=== PATIENT | male | born 1960 | race Asian ===

== ENCOUNTER 2018-12-22 11:48 | Inpatient (IN) | payer OTHER ==
[~2018-12-22 11:48] MED LIST: POTASSIUM CHLORIDE 20 MEQ/SW 100 ML IVPB
[2018-12-22 13:01] LABS: ADD MAN DIFF? NO
[2018-12-22 13:03] LABS: ABNORMAL IP MESSAGE 1; BASOPHIL # 0.1 10^3/ul (0.0-0.1); BASOPHILS % 0.2 % (0.0-2.0); EOSINOPHILS # 0.2 10^3/ul (0.0-0.5); EOSINOPHILS % 0.9 % (0.0-7.0); HEMATOCRIT 32.6 % (42.0-52.0); HEMOGLOBIN 10.3 g/dl (14.0-18.0); LYMPHOCYTES # 0.9 10^3/ul (0.8-2.9); LYMPHOCYTES % 4.3 % (15.0-51.0); MEAN CORPUSCULAR HEMOGLOBIN 26.8 pg (29.0-33.0); MEAN CORPUSCULAR HGB CONC 31.6 g/dl (32.0-37.0); MEAN CORPUSCULAR VOLUME 84.7 fl (82.0-101.0); MEAN PLATELET VOLUME 9.6 fl (7.4-10.4); MONOCYTE # 1.5 10^3/ul (0.3-0.9); MONOCYTES % 7.6 % (0.0-11.0); NEUTROPHIL # 17.5 10^3/ul (1.6-7.5); NEUTROPHILS % 85.9 % (39.0-77.0); PLATELET COUNT 266 10^3/UL (140-415); POSITIVE DIFF @See below; RED BLOOD COUNT 3.85 10^6/ul (4.70-6.10); RED CELL DISTRIBUTION WIDTH 14.7 % (11.5-14.5)
[2018-12-22 13:23] LABS: PARTIAL THROMBOPLASTIN TIME 34.3 Sec (23.0-35.0); PROTIME 14.3 Sec (11.9-14.9); PT RATIO 1.1
[2018-12-22 13:25] LABS: HOLD TRANSMISSIONS 1
[2018-12-22 13:26] LABS: ALANINE AMINOTRANSFERASE 68 IU/L (13-69); ALBUMIN 3.1 g/dl (3.3-4.9); ALBUMIN/GLOBULIN RATIO 0.81; ALKALINE PHOSPHATASE 268 IU/L (42-121); ANION GAP 6 (5-13); ASPARTATE AMINO TRANSFERASE 44 IU/L (15-46); BILIRUBIN,INDIRECT 0.7 mg/dl (0-1.1); BILIRUBIN,TOTAL 0.7 mg/dl (0.2-1.3); BLOOD UREA NITROGEN 15 mg/dl (7-20); CALCIUM 9.5 mg/dl (8.4-10.2); CARBON DIOXIDE 31 mmol/L (21-31); CHLORIDE 102 mmol/L (97-110); GLUCOSE 127 mg/dl (70-220); TOTAL PROTEIN 6.9 g/dl (6.1-8.1)
[2018-12-22 13:27] LABS: WHITE BLOOD COUNT 20.3 10^3/ul (4.8-10.8)
[2018-12-22 13:30] LABS: SODIUM 139 mmol/L (135-144)
[2018-12-22 13:31] LABS: CREATININE 1.47 mg/dl (0.61-1.24); Estimated GFR 49 mL/min (>60)
[2018-12-22] MEDS ORDERED: FENTAnyl 50 MCG/ML VIAL ×2 (14:14→14:45)
[2018-12-22] MEDS ORDERED: MIDAZOLAM 1 MG/ML 2 ML INJ (14:15)
[2018-12-22] MEDS ORDERED: morphine SULFATE/PF (10 MG/10 ML) INJ (14:16)
[2018-12-22] MEDS ORDERED: VANCOMYCIN 1 GM (PMX) 250 ML (14:38)
[2018-12-22] MEDS ORDERED: METOPROLOL 5 MG INJ ×3 (14:42→15:58)
[2018-12-22] MEDS ORDERED: hydrALAzine 20 MG INJ ×2 (14:45→15:07)
[2018-12-22] MEDS: POLYMYXIN B 500000 UNIT INJ (15:06)
[2018-12-22] MEDS: BACITRACIN 50000 UNITS INJ IRR (15:07)
[2018-12-22] MEDS ORDERED: LABETALOL HCL 20MG INJ (15:29)
[2018-12-22] MEDS ORDERED: nitroGLYCerin 50 MG INJ (15:30)
[2018-12-22] MEDS ORDERED: MEPERIDINE 100 MG INJ (15:49)
[2018-12-22] MEDS ORDERED: hydrALAzine 20 MG INJ IV (16:30)
[2018-12-22] MEDS ORDERED: LABETALOL HCL 20MG INJ IV (16:30)
[2018-12-22] MEDS ORDERED: FENTAnyl 50 MCG/ML VIAL IV (16:30)
[2018-12-22] MEDS ORDERED: HYDROmorphONE 1 MG/5 ML IV SYRINGE IV ×2 (16:30)
[2018-12-22] MEDS ORDERED: DIPHENHYDRAMINE 50 MG INJ IV (16:30)
[2018-12-22] MEDS ORDERED: NALOXONE (0.4 MG/ML) INJ IV (16:30)
[2018-12-22] MEDS ORDERED: NITROGLYCERIN 50 MG/D5W (PMX) 250 ML IV (16:30)
[2018-12-22] MEDS ORDERED: ONDANSETRON 4 MG INJ IV ×2 (16:30→17:00)
[2018-12-22] MEDS ORDERED: ACETAMINOPHEN 650 MG SUPP PR (17:00)
[2018-12-22] MEDS ORDERED: NACL 0.9% 3 ML SYG IV (17:00)
[2018-12-22] MEDS: SOD CHLORIDE 0.9% 1,000 ML IV (17:22)
[2018-12-22 17:27] LABS: HEMOGLOBIN A1C 5.8 % (0-5.9)
[2018-12-22] MEDS: POTASSIUM CHLORIDE 100 ML IVPB (17:29)
[2018-12-22 17:32] LABS: CHOLESTEROL 139 mg/dl (100-200)
[2018-12-22 17:32] LABS: CHOL/HDL RATIO 5.7 RATIO; HDL CHOLESTEROL 24 mg/dl (30-78); LDL CHOLESTEROL,CALCULATED 94 mg/dl; TRIGLYCERIDES 103 mg/dl (0-149)
[2018-12-22 17:33] LABS: MAGNESIUM 1.7 mg/dl (1.7-2.5)
[2018-12-22 17:40] LABS: LACTIC ACID 3.9 mmol/L (0.5-2.0)
[2018-12-22 17:48] LABS: C-REACTIVE PROTEIN 22.3 mg/dl (0.0-0.9)
[2018-12-22] MEDS ORDERED: VANCOMYCIN IV PER PHARMACY XX (18:30)
[2018-12-22 19:04] LABS: ERYTHROCYTE SEDIMENTATION RATE 121 mm/Hr (0-20)
[2018-12-22 19:31] LABS: PHOSPHORUS 1.8 mg/dl (2.5-4.9)
[2018-12-22 20:58] LABS: PARATHYROID HORMONE INTACT 287.4 pg/ml (7.5-53.5)
[2018-12-22] MEDS ORDERED: MEROPENEM 1 GM/50ML(PMX) 50 ML IVPB (21:00)
[2018-12-22] MEDS ORDERED: LEFLUNOMIDE 20 MG TAB PO (21:00)
[2018-12-22] MEDS: LABETALOL 100 MG TAB PO (21:00)
[2018-12-22] MEDS ORDERED: CALCITRIOL 0.25 MCG CAP PO (21:00)
[2018-12-22] MEDS: SOD PHOS MONO/DIBAS 250 MG TAB PO (21:10)
[2018-12-22] MEDS ORDERED: TACROLIMUS 1 MG CAP PO (22:00)
[2018-12-22] MEDS: DIPHENHYDRAMINE 50 MG INJ IV (22:07)
[2018-12-22] MEDS: TACROLIMUS 1 MG CAP PO (22:07)
[2018-12-22] MEDS: AZTREONAM 2 GM in SOD CHLORIDE 0.9% 100 ML IVPB (22:53)
[2018-12-23] MEDS: POTASSIUM CHLORIDE 100 ML IVPB (00:06)
[2018-12-23 05:59] LABS: ADD MAN DIFF? NO
[2018-12-23 06:13] LABS: WHITE BLOOD COUNT 12.3 10^3/ul (4.8-10.8)
[2018-12-23 06:13] LABS: BASOPHIL # 0.1 10^3/ul (0.0-0.1); BASOPHILS % 0.4 % (0.0-2.0); EOSINOPHILS # 0.2 10^3/ul (0.0-0.5); EOSINOPHILS % 1.5 % (0.0-7.0); HEMATOCRIT 26.2 % (42.0-52.0); HEMOGLOBIN 8.2 g/dl (14.0-18.0); LYMPHOCYTES # 0.9 10^3/ul (0.8-2.9); LYMPHOCYTES % 7.4 % (15.0-51.0); MEAN CORPUSCULAR HEMOGLOBIN 26.7 pg (29.0-33.0); MEAN CORPUSCULAR HGB CONC 31.3 g/dl (32.0-37.0); MEAN CORPUSCULAR VOLUME 85.3 fl (82.0-101.0); MEAN PLATELET VOLUME 10.4 fl (7.4-10.4); MONOCYTE # 0.9 10^3/ul (0.3-0.9); MONOCYTES % 7.3 % (0.0-11.0); NEUTROPHIL # 10.1 10^3/ul (1.6-7.5); NEUTROPHILS % 82.4 % (39.0-77.0); PLATELET COUNT 233 10^3/UL (140-415); RED BLOOD COUNT 3.07 10^6/ul (4.70-6.10); RED CELL DISTRIBUTION WIDTH 15.2 % (11.5-14.5)
[2018-12-23 06:23] LABS: INR 1.14; PROTIME 14.7 Sec (11.9-14.9); PT RATIO 1.1
[2018-12-23 06:24] LABS: PARTIAL THROMBOPLASTIN TIME 38.8 Sec (23.0-35.0)
[2018-12-23 06:31] LABS: LACTIC ACID 1.1 mmol/L (0.5-2.0)
[2018-12-23 06:44] LABS: ALANINE AMINOTRANSFERASE 64 IU/L (13-69); ALBUMIN 2.4 g/dl (3.3-4.9); ALBUMIN/GLOBULIN RATIO 0.77; ALKALINE PHOSPHATASE 174 IU/L (42-121); ANION GAP 3 (5-13); ASPARTATE AMINO TRANSFERASE 74 IU/L (15-46); BILIRUBIN,INDIRECT 0.4 mg/dl (0-1.1); BILIRUBIN,TOTAL 0.4 mg/dl (0.2-1.3); BLOOD UREA NITROGEN 17 mg/dl (7-20); CALCIUM 8.7 mg/dl (8.4-10.2); CARBON DIOXIDE 28 mmol/L (21-31); CHLORIDE 110 mmol/L (97-110); CREATININE 1.36 mg/dl (0.61-1.24); Estimated GFR 54 mL/min (>60); GLUCOSE 88 mg/dl (70-220); POTASSIUM 3.5 mmol/L (3.5-5.1); SODIUM 141 mmol/L (135-144); TOTAL PROTEIN 5.5 g/dl (6.1-8.1)
[2018-12-23 06:58] LABS: HEMOGLOBIN A1C 5.8 % (0-5.9)
[2018-12-23 06:59] LABS: MAGNESIUM 1.8 mg/dl (1.7-2.5)
[2018-12-23 06:59] LABS: PHOSPHORUS 2.2 mg/dl (2.5-4.9); PROCALCITONIN 10.82 ng/mL (0.00-0.10)
[2018-12-23] MEDS: SOD PHOS MONO/DIBAS 250 MG TAB PO ×2 (09:00→23:06)
[2018-12-23] MEDS ORDERED: TACROLIMUS 1 MG CAP PO (09:00)
[2018-12-23] MEDS ORDERED: CLOPIDOGREL 75 MG TAB PO (09:00)
[2018-12-23] MEDS ORDERED: SOD PHOS MONO/DIBAS 250 MG TAB PO (09:00)
[2018-12-23] MEDS ORDERED: NIFEdipine (XL) 30 MG TAB PO (09:00)
[2018-12-23] MEDS ORDERED: LEFLUNOMIDE 20 MG TAB PO ×2 (09:00)
[2018-12-23] MEDS ORDERED: CALCITRIOL 0.25 MCG CAP PO (09:00)
[2018-12-23] MEDS ORDERED: FOLIC ACID 1 MG TAB PO (09:00)
[2018-12-23] MEDS ORDERED: MULTIVIT/CA CARB/B CMPLX/FA TAB PO (09:00)
[2018-12-23] MEDS: AZTREONAM 2 GM in SOD CHLORIDE 0.9% 100 ML IVPB ×2 (09:00→22:56)
[2018-12-23] MEDS ORDERED: LABETALOL 100 MG TAB PO (09:00)
[2018-12-23 10:02] LABS: ADD UMIC NO; UR ASCORBIC ACID NEGATIVE (NEGATIVE); UR BILIRUBIN (Dip) NEGATIVE (NEGATIVE); UR BLOOD (Dip) NEGATIVE (NEGATIVE); UR CLARITY CLEAR (CLEAR); UR COLOR YELLOW (YELLOW); UR GLUCOSE (Dip) NEGATIVE (NEGATIVE); UR KETONES (Dip) TRACE mg/dL (NEGATIVE); UR LEUKOCYTE ESTERASE (Dip) NEGATIVE Leu/ul (NEGATIVE); UR NITRITE (Dip) NEGATIVE (NEGATIVE); UR SPECIFIC GRAVITY (Dip) 1.015 (1.003-1.030); UR TOTAL PROTEIN (Dip) NEGATIVE (NEGATIVE); UR UROBILINOGEN (Dip) NEGATIVE (NEGATIVE)
[2018-12-23] MEDS: LEFLUNOMIDE 20 MG TAB PO (12:41)
[2018-12-23] MEDS: LABETALOL 100 MG TAB PO ×2 (12:41→22:55)
[2018-12-23] MEDS: CALCITRIOL 0.25 MCG CAP PO (12:41)
[2018-12-23] MEDS: TACROLIMUS 1 MG CAP PO ×2 (12:42→22:55)
[2018-12-23] MEDS: FOLIC ACID 1 MG TAB PO (12:42)
[2018-12-23] MEDS: NIFEdipine (XL) 30 MG TAB PO (12:42)
[2018-12-23] MEDS: MULTIVIT/CA CARB/B CMPLX/FA TAB PO (12:42)
[2018-12-23] MEDS: POTASSIUM CHLORIDE (SR) 20 MEQ TAB PO (14:30)
[2018-12-23] MEDS: VANCOMYCIN 750 MG (PMX) 250 ML IVPB (14:31)
[2018-12-23 14:47] LABS: IRON 24 ug/dl (35-150)
[2018-12-23 14:56] LABS: % IRON SATURATION 15 % SAT (22-52); TOTAL IRON BINDING CAPACITY 156 ug/dl (241-421)
[2018-12-23 16:16] LABS: TACROLIMUS 10.3 mcg/L
[2018-12-24 06:11] LABS: ADD MAN DIFF? NO
[2018-12-24 06:16] LABS: WHITE BLOOD COUNT 15.4 10^3/ul (4.8-10.8)
[2018-12-24 06:16] LABS: BASOPHIL # 0.1 10^3/ul (0.0-0.1); BASOPHILS % 0.4 % (0.0-2.0); EOSINOPHILS # 0.3 10^3/ul (0.0-0.5); EOSINOPHILS % 1.7 % (0.0-7.0); HEMATOCRIT 28.8 % (42.0-52.0); HEMOGLOBIN 9.1 g/dl (14.0-18.0); LYMPHOCYTES # 0.8 10^3/ul (0.8-2.9); LYMPHOCYTES % 4.9 % (15.0-51.0); MEAN CORPUSCULAR HEMOGLOBIN 26.9 pg (29.0-33.0); MEAN CORPUSCULAR HGB CONC 31.6 g/dl (32.0-37.0); MEAN CORPUSCULAR VOLUME 85.2 fl (82.0-101.0); MONOCYTE # 1.1 10^3/ul (0.3-0.9); MONOCYTES % 7.2 % (0.0-11.0); NEUTROPHILS % 84.6 % (39.0-77.0); PLATELET COUNT 269 10^3/UL (140-415); RED BLOOD COUNT 3.38 10^6/ul (4.70-6.10); RED CELL DISTRIBUTION WIDTH 15.1 % (11.5-14.5)
[2018-12-24 06:39] LABS: LACTIC ACID 1.1 mmol/L (0.5-2.0)
[2018-12-24 06:44] LABS: ANION GAP 6 (5-13); BLOOD UREA NITROGEN 13 mg/dl (7-20); CARBON DIOXIDE 25 mmol/L (21-31); CHLORIDE 105 mmol/L (97-110); CREATININE 1.18 mg/dl (0.61-1.24); Estimated GFR > 60 mL/min (>60); GLUCOSE 100 mg/dl (70-220); POTASSIUM 3.9 mmol/L (3.5-5.1); SODIUM 136 mmol/L (135-144)
[2018-12-24 06:59] LABS: MAGNESIUM 1.4 mg/dl (1.7-2.5)
[2018-12-24 07:01] LABS: PROCALCITONIN 6.64 ng/mL (0.00-0.10)
[2018-12-24] MEDS: LEFLUNOMIDE 20 MG TAB PO (08:40)
[2018-12-24] MEDS: TACROLIMUS 1 MG CAP PO ×2 (08:40→21:50)
[2018-12-24] MEDS: LABETALOL 100 MG TAB PO ×2 (08:41→21:51)
[2018-12-24] MEDS: SOD PHOS MONO/DIBAS 250 MG TAB PO ×2 (08:42→21:51)
[2018-12-24] MEDS: MULTIVIT/CA CARB/B CMPLX/FA TAB PO (08:43)
[2018-12-24] MEDS: FOLIC ACID 1 MG TAB PO (08:43)
[2018-12-24] MEDS: CALCITRIOL 0.25 MCG CAP PO (08:43)
[2018-12-24] MEDS: NIFEdipine (XL) 30 MG TAB PO (08:44)
[2018-12-24] MEDS: AZTREONAM 2 GM in SOD CHLORIDE 0.9% 100 ML IVPB ×2 (08:44→21:50)
[2018-12-24] MEDS: MAGNESIUM SULFATE 3 GM in DEXTROSE 5% 100 ML IVPB (10:40)
[2018-12-24] MEDS: POTASSIUM PHOSPHATE 15 MM in SOD CHLORIDE 0.9% 250 ML IVPB (11:13)
[2018-12-24] MEDS: VANCOMYCIN 750 MG (PMX) 250 ML IVPB (14:22)
[2018-12-25 05:46] LABS: ADD MAN DIFF? NO
[2018-12-25 06:11] LABS: WHITE BLOOD COUNT 14.2 10^3/ul (4.8-10.8)
[2018-12-25 06:11] LABS: BASOPHIL # 0.1 10^3/ul (0.0-0.1); BASOPHILS % 0.4 % (0.0-2.0); EOSINOPHILS # 0.4 10^3/ul (0.0-0.5); EOSINOPHILS % 2.5 % (0.0-7.0); HEMATOCRIT 29.2 % (42.0-52.0); HEMOGLOBIN 9.2 g/dl (14.0-18.0); LYMPHOCYTES # 0.7 10^3/ul (0.8-2.9); LYMPHOCYTES % 5.1 % (15.0-51.0); MEAN CORPUSCULAR HEMOGLOBIN 26.9 pg (29.0-33.0); MEAN CORPUSCULAR HGB CONC 31.5 g/dl (32.0-37.0); MEAN CORPUSCULAR VOLUME 85.4 fl (82.0-101.0); MEAN PLATELET VOLUME 10.1 fl (7.4-10.4); MONOCYTES % 7.2 % (0.0-11.0); NEUTROPHIL # 11.9 10^3/ul (1.6-7.5); NEUTROPHILS % 83.7 % (39.0-77.0); PLATELET COUNT 273 10^3/UL (140-415); RED BLOOD COUNT 3.42 10^6/ul (4.70-6.10); RED CELL DISTRIBUTION WIDTH 15.3 % (11.5-14.5)
[2018-12-25 06:39] LABS: MAGNESIUM 1.8 mg/dl (1.7-2.5)
[2018-12-25 06:47] LABS: ANION GAP 4 (5-13); BLOOD UREA NITROGEN 13 mg/dl (7-20); CARBON DIOXIDE 24 mmol/L (21-31); CHLORIDE 109 mmol/L (97-110); CREATININE 1.08 mg/dl (0.61-1.24); Estimated GFR > 60 mL/min (>60); GLUCOSE 105 mg/dl (70-220); POTASSIUM 4.3 mmol/L (3.5-5.1); SODIUM 137 mmol/L (135-144)
[2018-12-25 06:48] LABS: PROCALCITONIN 3.56 ng/mL (0.00-0.10)
[2018-12-25 07:12] LABS: PHOSPHORUS 2.5 mg/dl (2.5-4.9)
[2018-12-25] MEDS: TACROLIMUS 1 MG CAP PO ×2 (08:42→20:50)
[2018-12-25] MEDS: MULTIVIT/CA CARB/B CMPLX/FA TAB PO (08:42)
[2018-12-25] MEDS: CALCITRIOL 0.25 MCG CAP PO (08:42)
[2018-12-25] MEDS: NIFEdipine (XL) 30 MG TAB PO (08:42)
[2018-12-25] MEDS: FOLIC ACID 1 MG TAB PO (08:43)
[2018-12-25] MEDS: LEFLUNOMIDE 20 MG TAB PO (08:43)
[2018-12-25] MEDS: LABETALOL 100 MG TAB PO ×2 (08:44→20:50)
[2018-12-25] MEDS: SOD PHOS MONO/DIBAS 250 MG TAB PO ×2 (08:45→20:49)
[2018-12-25] MEDS: AZTREONAM 2 GM in SOD CHLORIDE 0.9% 100 ML IVPB ×2 (09:43→20:49)
[2018-12-25] MEDS: VANCOMYCIN 750 MG (PMX) 250 ML IVPB (15:28)
[2018-12-25 15:37] LABS: VANCOMYCIN,TROUGH 5.5 ug/ml (10.0-20.0)
[2018-12-26] MEDS: VANCOMYCIN 750 MG (PMX) 250 ML IVPB ×2 (03:58→14:56)
[2018-12-26 05:56] LABS: ADD MAN DIFF? NO
[2018-12-26 06:08] LABS: WHITE BLOOD COUNT 14.4 10^3/ul (4.8-10.8)
[2018-12-26 06:08] LABS: BASOPHIL # 0.1 10^3/ul (0.0-0.1); BASOPHILS % 0.4 % (0.0-2.0); EOSINOPHILS # 0.4 10^3/ul (0.0-0.5); EOSINOPHILS % 2.9 % (0.0-7.0); HEMATOCRIT 31.9 % (42.0-52.0); HEMOGLOBIN 10.1 g/dl (14.0-18.0); LYMPHOCYTES # 0.8 10^3/ul (0.8-2.9); LYMPHOCYTES % 5.4 % (15.0-51.0); MEAN CORPUSCULAR HEMOGLOBIN 26.9 pg (29.0-33.0); MEAN CORPUSCULAR HGB CONC 31.7 g/dl (32.0-37.0); MEAN CORPUSCULAR VOLUME 84.8 fl (82.0-101.0); MEAN PLATELET VOLUME 10.3 fl (7.4-10.4); MONOCYTE # 1.2 10^3/ul (0.3-0.9); MONOCYTES % 8.3 % (0.0-11.0); NEUTROPHIL # 11.8 10^3/ul (1.6-7.5); PLATELET COUNT 253 10^3/UL (140-415); POSITIVE DIFF @See below; RED BLOOD COUNT 3.76 10^6/ul (4.70-6.10); RED CELL DISTRIBUTION WIDTH 15.7 % (11.5-14.5)
[2018-12-26 06:36] LABS: ANION GAP 3 (5-13); BLOOD UREA NITROGEN 13 mg/dl (7-20); CALCIUM 9.2 mg/dl (8.4-10.2); CARBON DIOXIDE 22 mmol/L (21-31); CHLORIDE 111 mmol/L (97-110); CREATININE 1.15 mg/dl (0.61-1.24); Estimated GFR > 60 mL/min (>60); GLUCOSE 105 mg/dl (70-220); POTASSIUM 4.6 mmol/L (3.5-5.1); SODIUM 136 mmol/L (135-144)
[2018-12-26 06:41] LABS: MAGNESIUM 1.4 mg/dl (1.7-2.5)
[2018-12-26 07:44] LABS: PROCALCITONIN 2.06 ng/mL (0.00-0.10)
[2018-12-26 07:51] LABS: PHOSPHORUS 2.2 mg/dl (2.5-4.9)
[2018-12-26] MEDS: FOLIC ACID 1 MG TAB PO (08:17)
[2018-12-26] MEDS: SOD PHOS MONO/DIBAS 250 MG TAB PO ×2 (08:17→20:42)
[2018-12-26] MEDS: TACROLIMUS 1 MG CAP PO ×2 (08:17→20:41)
[2018-12-26] MEDS: MULTIVIT/CA CARB/B CMPLX/FA TAB PO (08:17)
[2018-12-26] MEDS: CALCITRIOL 0.25 MCG CAP PO (08:17)
[2018-12-26] MEDS: LEFLUNOMIDE 20 MG TAB PO (08:17)
[2018-12-26] MEDS: NIFEdipine (XL) 30 MG TAB PO (08:18)
[2018-12-26] MEDS: LABETALOL 100 MG TAB PO ×2 (08:18→20:42)
[2018-12-26] MEDS: AZTREONAM 2 GM in SOD CHLORIDE 0.9% 100 ML IVPB ×2 (08:50→20:39)
[2018-12-26] MEDS: MAGNESIUM SULFATE 2 GM/50 ML 50 ML IVPB (11:50)
[2018-12-26] MEDS ORDERED: VANCOMYCIN IV PER PHARMACY XX (17:00)
[2018-12-26] MEDS: LEVOFLOXACIN 500MG/D5W (PMX) 100 ML IVPB (17:30)
[2018-12-26] MEDS: ACETAMINOPHEN 325 MG TAB PO (20:44)
[2018-12-26] MEDS ORDERED: AZTREONAM 1 GM/NS (PMX) 50 ML IVPB (21:00)
[2018-12-26] MEDS: metroNIDAZOLE 500 MG/NS (PMX) 100 ML IVPB (22:08)
[2018-12-27] MEDS: VANCOMYCIN 750 MG (PMX) 250 ML IVPB ×2 (03:03→15:40)
[2018-12-27 06:02] LABS: ADD MAN DIFF? NO
[2018-12-27 06:12] LABS: WHITE BLOOD COUNT 16.9 10^3/ul (4.8-10.8)
[2018-12-27 06:12] LABS: BASOPHIL # 0.1 10^3/ul (0.0-0.1); BASOPHILS % 0.3 % (0.0-2.0); EOSINOPHILS # 0.4 10^3/ul (0.0-0.5); EOSINOPHILS % 2.1 % (0.0-7.0); HEMOGLOBIN 8.7 g/dl (14.0-18.0); LYMPHOCYTES # 0.7 10^3/ul (0.8-2.9); LYMPHOCYTES % 4.1 % (15.0-51.0); MEAN CORPUSCULAR HEMOGLOBIN 27.2 pg (29.0-33.0); MEAN CORPUSCULAR HGB CONC 32.2 g/dl (32.0-37.0); MEAN CORPUSCULAR VOLUME 84.4 fl (82.0-101.0); MONOCYTE # 1.3 10^3/ul (0.3-0.9); MONOCYTES % 7.4 % (0.0-11.0); NEUTROPHIL # 14.4 10^3/ul (1.6-7.5); NEUTROPHILS % 85.2 % (39.0-77.0); PLATELET COUNT 244 10^3/UL (140-415); RED CELL DISTRIBUTION WIDTH 15.5 % (11.5-14.5)
[2018-12-27 06:19] LABS: ADD UMIC YES; UR ASCORBIC ACID NEGATIVE (NEGATIVE); UR BILIRUBIN (Dip) NEGATIVE (NEGATIVE); UR BLOOD (Dip) 1+ mg/dL (NEGATIVE); UR CLARITY CLEAR (CLEAR); UR COLOR YELLOW (YELLOW); UR GLUCOSE (Dip) NEGATIVE (NEGATIVE); UR KETONES (Dip) NEGATIVE (NEGATIVE); UR LEUKOCYTE ESTERASE (Dip) NEGATIVE Leu/ul (NEGATIVE); UR NITRITE (Dip) NEGATIVE (NEGATIVE); UR RBC 0 /HPF (0-5); UR SPECIFIC GRAVITY (Dip) 1.013 (1.003-1.030); UR TOTAL PROTEIN (Dip) NEGATIVE (NEGATIVE); UR UROBILINOGEN (Dip) NEGATIVE (NEGATIVE); UR WBC 1 /HPF (0-5)
[2018-12-27 06:34] LABS: ALANINE AMINOTRANSFERASE 84 IU/L (13-69); ALBUMIN 2.5 g/dl (3.3-4.9); ALBUMIN/GLOBULIN RATIO 0.78; ALKALINE PHOSPHATASE 226 IU/L (42-121); ANION GAP 5 (5-13); ASPARTATE AMINO TRANSFERASE 88 IU/L (15-46); BILIRUBIN,INDIRECT 0.6 mg/dl (0-1.1); BILIRUBIN,TOTAL 0.6 mg/dl (0.2-1.3); BLOOD UREA NITROGEN 15 mg/dl (7-20); CALCIUM 8.8 mg/dl (8.4-10.2); CARBON DIOXIDE 20 mmol/L (21-31); CHLORIDE 110 mmol/L (97-110); CREATININE 1.08 mg/dl (0.61-1.24); Estimated GFR > 60 mL/min (>60); GLUCOSE 109 mg/dl (70-220); MAGNESIUM 1.6 mg/dl (1.7-2.5); POTASSIUM 4.1 mmol/L (3.5-5.1); SODIUM 135 mmol/L (135-144); TOTAL PROTEIN 5.7 g/dl (6.1-8.1)
[2018-12-27 06:35] LABS: LACTIC ACID 0.8 mmol/L (0.5-2.0)
[2018-12-27] MEDS: metroNIDAZOLE 500 MG/NS (PMX) 100 ML IVPB ×3 (06:53→22:02)
[2018-12-27 07:10] LABS: PROCALCITONIN 1.64 ng/mL (0.00-0.10)
[2018-12-27] MEDS: AZTREONAM 2 GM in SOD CHLORIDE 0.9% 100 ML IVPB ×2 (09:04→20:47)
[2018-12-27] MEDS: SOD PHOS MONO/DIBAS 250 MG TAB PO ×2 (09:05→20:48)
[2018-12-27] MEDS: TACROLIMUS 1 MG CAP PO ×2 (09:06→20:48)
[2018-12-27] MEDS: LABETALOL 100 MG TAB PO ×2 (09:06→20:48)
[2018-12-27] MEDS: NIFEdipine (XL) 30 MG TAB PO (09:06)
[2018-12-27] MEDS: CALCITRIOL 0.25 MCG CAP PO (09:06)
[2018-12-27] MEDS: LEFLUNOMIDE 20 MG TAB PO (09:06)
[2018-12-27] MEDS: FOLIC ACID 1 MG TAB PO (09:06)
[2018-12-27] MEDS: MULTIVIT/CA CARB/B CMPLX/FA TAB PO (09:07)
[2018-12-27 14:29] LABS: VANCOMYCIN,TROUGH 13.7 ug/ml (10.0-20.0)
[2018-12-27] MEDS: LEVOFLOXACIN 500MG/D5W (PMX) 100 ML IVPB (17:13)
[2018-12-27] MEDS: MAGNESIUM SULFATE 2 GM/50 ML 50 ML IVPB (18:05)
[2018-12-27] MEDS: HYDROmorphONE 1 MG/ML SYG IV (19:23)
[2018-12-27 20:02] LABS: CREATININE,URINE RANDOM 70.99 mg/dl (20-370)
[2018-12-28] MEDS: HYDROmorphONE 1 MG/ML SYG IV ×2 (02:31→20:15)
[2018-12-28] MEDS: VANCOMYCIN 750 MG (PMX) 250 ML IVPB ×2 (02:44→15:51)
[2018-12-28] MEDS: metroNIDAZOLE 500 MG/NS (PMX) 100 ML IVPB ×3 (05:27→21:59)
[2018-12-28 06:43] LABS: ADD MAN DIFF? NO
[2018-12-28 06:48] LABS: WHITE BLOOD COUNT 17.3 10^3/ul (4.8-10.8)
[2018-12-28 06:48] LABS: BASOPHIL # 0.1 10^3/ul (0.0-0.1); BASOPHILS % 0.5 % (0.0-2.0); EOSINOPHILS # 0.4 10^3/ul (0.0-0.5); HEMATOCRIT 28.1 % (42.0-52.0); HEMOGLOBIN 8.7 g/dl (14.0-18.0); LYMPHOCYTES # 0.7 10^3/ul (0.8-2.9); LYMPHOCYTES % 4.3 % (15.0-51.0); MEAN CORPUSCULAR HEMOGLOBIN 26.8 pg (29.0-33.0); MEAN CORPUSCULAR VOLUME 86.5 fl (82.0-101.0); MONOCYTE # 1.3 10^3/ul (0.3-0.9); MONOCYTES % 7.4 % (0.0-11.0); NEUTROPHIL # 14.7 10^3/ul (1.6-7.5); NEUTROPHILS % 84.9 % (39.0-77.0); PLATELET COUNT 210 10^3/UL (140-415); RED BLOOD COUNT 3.25 10^6/ul (4.70-6.10); RED CELL DISTRIBUTION WIDTH 15.9 % (11.5-14.5)
[2018-12-28] MEDS ORDERED: BUPIVACAINE 0.75%/DEXT (SPINAL) 2 ML INJ (07:00)
[2018-12-28 07:15] LABS: ALANINE AMINOTRANSFERASE 67 IU/L (13-69); ALBUMIN 2.4 g/dl (3.3-4.9); ALBUMIN/GLOBULIN RATIO 0.72; ALKALINE PHOSPHATASE 191 IU/L (42-121); ANION GAP 4 (5-13); ASPARTATE AMINO TRANSFERASE 55 IU/L (15-46); BILIRUBIN,INDIRECT 0.5 mg/dl (0-1.1); BILIRUBIN,TOTAL 0.5 mg/dl (0.2-1.3); BLOOD UREA NITROGEN 14 mg/dl (7-20); CALCIUM 8.7 mg/dl (8.4-10.2); CARBON DIOXIDE 21 mmol/L (21-31); CHLORIDE 112 mmol/L (97-110); CREATININE 1.07 mg/dl (0.61-1.24); Estimated GFR > 60 mL/min (>60); GLUCOSE 97 mg/dl (70-220); MAGNESIUM 1.8 mg/dl (1.7-2.5); PHOSPHORUS 2.9 mg/dl (2.5-4.9); POTASSIUM 3.9 mmol/L (3.5-5.1); SODIUM 137 mmol/L (135-144); TOTAL PROTEIN 5.7 g/dl (6.1-8.1)
[2018-12-28] MEDS: AZTREONAM 2 GM in SOD CHLORIDE 0.9% 100 ML IVPB ×2 (08:37→20:45)
[2018-12-28] MEDS: CALCITRIOL 0.25 MCG CAP PO (08:38)
[2018-12-28] MEDS: LEFLUNOMIDE 20 MG TAB PO (08:38)
[2018-12-28] MEDS: FOLIC ACID 1 MG TAB PO (08:39)
[2018-12-28] MEDS: SOD PHOS MONO/DIBAS 250 MG TAB PO ×2 (08:39→22:00)
[2018-12-28] MEDS: MULTIVIT/CA CARB/B CMPLX/FA TAB PO (08:39)
[2018-12-28] MEDS: LABETALOL 100 MG TAB PO ×2 (08:40→20:53)
[2018-12-28] MEDS: TACROLIMUS 1 MG CAP PO ×2 (08:40→20:52)
[2018-12-28] MEDS: ENOXAPARIN 40 MG/0.4 ML SYG SC (08:41)
[2018-12-28] MEDS: NIFEdipine (XL) 30 MG TAB PO (08:43)
[2018-12-28] MEDS: MAGNESIUM OXIDE 400 MG TAB PO (10:41)
[2018-12-28] MEDS ORDERED: MIDAZOLAM 1 MG/ML 2 ML INJ (12:49)
[2018-12-28] MEDS ORDERED: FENTAnyl 50 MCG/ML VIAL (12:50)
[2018-12-28] MEDS ORDERED: morphine SULFATE/PF (10 MG/10 ML) INJ (12:51)
[2018-12-28] MEDS ORDERED: VANCOMYCIN 1 GM (PMX) 250 ML (13:32)
[2018-12-28] MEDS ORDERED: PHENYLephrine 10 MG INJ (13:57)
[2018-12-28] MEDS ORDERED: LIDOCAINE 2% (SDV) 5 ML INJ (13:58)
[2018-12-28] MEDS ORDERED: PROPOFOL 20 ML (13:58)
[2018-12-28] MEDS: POLYMYXIN B 500000 UNIT INJ IRR (14:21)
[2018-12-28] MEDS: BACITRACIN 50000 UNITS INJ IRR (14:22)
[2018-12-28] MEDS ORDERED: HYDROmorphONE 1 MG/5 ML IV SYRINGE IV ×2 (14:30)
[2018-12-28] MEDS ORDERED: DIPHENHYDRAMINE 50 MG INJ IV (14:30)
[2018-12-28] MEDS ORDERED: FENTAnyl 50 MCG/ML VIAL IV (14:30)
[2018-12-28] MEDS ORDERED: ONDANSETRON 4 MG INJ IV (14:30)
[2018-12-28] MEDS ORDERED: METOCLOPRAMIDE 10 MG INJ IV (14:30)
[2018-12-28] MEDS: LEVOFLOXACIN 500MG/D5W (PMX) 100 ML IVPB (16:59)
[2018-12-29] MEDS: VANCOMYCIN 750 MG (PMX) 250 ML IVPB ×2 (02:22→16:30)
[2018-12-29] MEDS: metroNIDAZOLE 500 MG/NS (PMX) 100 ML IVPB ×3 (05:43→22:06)
[2018-12-29 06:22] LABS: ADD MAN DIFF? NO
[2018-12-29 06:26] LABS: WHITE BLOOD COUNT 15.5 10^3/ul (4.8-10.8)
[2018-12-29 06:26] LABS: BASOPHIL # 0.1 10^3/ul (0.0-0.1); BASOPHILS % 0.4 % (0.0-2.0); EOSINOPHILS # 0.5 10^3/ul (0.0-0.5); EOSINOPHILS % 3.3 % (0.0-7.0); HEMATOCRIT 25.7 % (42.0-52.0); HEMOGLOBIN 7.9 g/dl (14.0-18.0); LYMPHOCYTES # 0.7 10^3/ul (0.8-2.9); LYMPHOCYTES % 4.3 % (15.0-51.0); MEAN CORPUSCULAR HEMOGLOBIN 26.6 pg (29.0-33.0); MEAN CORPUSCULAR HGB CONC 30.7 g/dl (32.0-37.0); MEAN CORPUSCULAR VOLUME 86.5 fl (82.0-101.0); MEAN PLATELET VOLUME 10.3 fl (7.4-10.4); MONOCYTE # 1.2 10^3/ul (0.3-0.9); MONOCYTES % 7.5 % (0.0-11.0); NEUTROPHILS % 83.8 % (39.0-77.0); PLATELET COUNT 227 10^3/UL (140-415); RED BLOOD COUNT 2.97 10^6/ul (4.70-6.10); RED CELL DISTRIBUTION WIDTH 15.9 % (11.5-14.5)
[2018-12-29 06:46] LABS: ANION GAP 7 (5-13); BLOOD UREA NITROGEN 17 mg/dl (7-20); CALCIUM 9.1 mg/dl (8.4-10.2); CARBON DIOXIDE 19 mmol/L (21-31); CHLORIDE 114 mmol/L (97-110); CREATININE 1.24 mg/dl (0.61-1.24); Estimated GFR 60 mL/min (>60); GLUCOSE 102 mg/dl (70-220); POTASSIUM 3.7 mmol/L (3.5-5.1); SODIUM 140 mmol/L (135-144)
[2018-12-29 07:38] LABS: PROCALCITONIN 1.52 ng/mL (0.00-0.10)
[2018-12-29] MEDS: NIFEdipine (XL) 30 MG TAB PO (09:00)
[2018-12-29] MEDS: DILTIAZEM 25 MG INJ IV ×2 (09:24→11:03)
[2018-12-29] MEDS: MULTIVIT/CA CARB/B CMPLX/FA TAB PO (09:30)
[2018-12-29] MEDS: CALCITRIOL 0.25 MCG CAP PO (09:30)
[2018-12-29] MEDS: TACROLIMUS 1 MG CAP PO ×2 (09:32→20:45)
[2018-12-29] MEDS: LABETALOL 100 MG TAB PO (09:32)
[2018-12-29] MEDS: FOLIC ACID 1 MG TAB PO (09:32)
[2018-12-29] MEDS: ENOXAPARIN 40 MG/0.4 ML SYG SC (09:42)
[2018-12-29] MEDS: MAGNESIUM OXIDE 400 MG TAB PO (09:56)
[2018-12-29] MEDS: DILTIAZEM-D5W 125MG/125ML DRIP 125 ML IV (09:57)
[2018-12-29] MEDS: ADENOSINE 6 MG INJ IV ×2 (10:12→10:25)
[2018-12-29] MEDS ORDERED: AMIODARONE 900 MG in DEXTROSE 5% 482 ML IV ×2 (11:00→11:30)
[2018-12-29] MEDS: AMIODARONE 150MG/D5W BOLUS 100 ML IV (11:40)
[2018-12-29] MEDS: AZTREONAM 2 GM in SOD CHLORIDE 0.9% 100 ML IVPB ×2 (12:34→20:44)
[2018-12-29] MEDS: LEFLUNOMIDE 20 MG TAB PO (14:42)
[2018-12-29] MEDS: DILTIAZEM 60 MG TAB PO ×3 (14:43→20:45)
[2018-12-29] MEDS: MAGNESIUM SULFATE 2 GM/50 ML 50 ML IVPB (14:47)
[2018-12-29] MEDS: SOD PHOS MONO/DIBAS 250 MG TAB PO ×2 (16:30→20:45)
[2018-12-29] MEDS: LEVOFLOXACIN 500MG/D5W (PMX) 100 ML IVPB (18:25)
[2018-12-30 02:56] LABS: VANCOMYCIN,TROUGH 17.5 ug/ml (10.0-20.0)
[2018-12-30] MEDS: VANCOMYCIN 750 MG (PMX) 250 ML IVPB ×2 (03:13→15:22)
[2018-12-30] MEDS: metroNIDAZOLE 500 MG/NS (PMX) 100 ML IVPB ×3 (06:05→20:47)
[2018-12-30 06:13] LABS: ADD MAN DIFF? NO
[2018-12-30 06:16] LABS: BASOPHIL # 0.1 10^3/ul (0.0-0.1); BASOPHILS % 0.4 % (0.0-2.0); EOSINOPHILS # 0.6 10^3/ul (0.0-0.5); HEMATOCRIT 26.9 % (42.0-52.0); HEMOGLOBIN 8.4 g/dl (14.0-18.0); LYMPHOCYTES # 0.7 10^3/ul (0.8-2.9); LYMPHOCYTES % 5.1 % (15.0-51.0); MEAN CORPUSCULAR HEMOGLOBIN 26.5 pg (29.0-33.0); MEAN CORPUSCULAR HGB CONC 31.2 g/dl (32.0-37.0); MEAN CORPUSCULAR VOLUME 84.9 fl (82.0-101.0); MEAN PLATELET VOLUME 9.7 fl (7.4-10.4); MONOCYTES % 7.1 % (0.0-11.0); NEUTROPHIL # 11.5 10^3/ul (1.6-7.5); NEUTROPHILS % 82.4 % (39.0-77.0); PLATELET COUNT 262 10^3/UL (140-415); RED BLOOD COUNT 3.17 10^6/ul (4.70-6.10); RED CELL DISTRIBUTION WIDTH 15.9 % (11.5-14.5)
[2018-12-30 06:46] LABS: ALANINE AMINOTRANSFERASE 53 IU/L (13-69); ALBUMIN 2.4 g/dl (3.3-4.9); ALKALINE PHOSPHATASE 145 IU/L (42-121); ANION GAP 8 (5-13); ASPARTATE AMINO TRANSFERASE 53 IU/L (15-46); BILIRUBIN,INDIRECT 0.4 mg/dl (0-1.1); BILIRUBIN,TOTAL 0.4 mg/dl (0.2-1.3); BLOOD UREA NITROGEN 13 mg/dl (7-20); CALCIUM 8.8 mg/dl (8.4-10.2); CARBON DIOXIDE 20 mmol/L (21-31); CHLORIDE 115 mmol/L (97-110); CREATININE 0.91 mg/dl (0.61-1.24); Estimated GFR > 60 mL/min (>60); GLUCOSE 112 mg/dl (70-220); MAGNESIUM 1.8 mg/dl (1.7-2.5); POTASSIUM 3.4 mmol/L (3.5-5.1); SODIUM 143 mmol/L (135-144); TOTAL PROTEIN 5.8 g/dl (6.1-8.1)
[2018-12-30] MEDS: TACROLIMUS 1 MG CAP PO ×2 (08:47→20:37)
[2018-12-30] MEDS: MAGNESIUM OXIDE 400 MG TAB PO (08:47)
[2018-12-30] MEDS: LEFLUNOMIDE 20 MG TAB PO (08:47)
[2018-12-30] MEDS: CALCITRIOL 0.25 MCG CAP PO (08:47)
[2018-12-30] MEDS: MULTIVIT/CA CARB/B CMPLX/FA TAB PO (08:47)
[2018-12-30] MEDS: FOLIC ACID 1 MG TAB PO (08:48)
[2018-12-30] MEDS: DILTIAZEM 60 MG TAB PO ×4 (08:48→20:36)
[2018-12-30] MEDS: AZTREONAM 2 GM in SOD CHLORIDE 0.9% 100 ML IVPB ×2 (08:52→20:38)
[2018-12-30] MEDS: SOD PHOS MONO/DIBAS 250 MG TAB PO ×2 (09:00→20:35)
[2018-12-30] MEDS: ENOXAPARIN 40 MG/0.4 ML SYG SC (09:02)
[2018-12-30] MEDS: LEVOFLOXACIN 500MG/D5W (PMX) 100 ML IVPB (17:46)
[2018-12-30] MEDS: AMIODARONE 200 MG TAB PO (20:37)
[2018-12-31] MEDS: metroNIDAZOLE 500 MG/NS (PMX) 100 ML IVPB ×3 (05:58→21:25)
[2018-12-31 06:24] LABS: ADD MAN DIFF? NO
[2018-12-31 06:30] LABS: BASOPHIL # 0.1 10^3/ul (0.0-0.1); BASOPHILS % 0.6 % (0.0-2.0); EOSINOPHILS # 0.6 10^3/ul (0.0-0.5); EOSINOPHILS % 5.5 % (0.0-7.0); HEMATOCRIT 27.3 % (42.0-52.0); HEMOGLOBIN 8.7 g/dl (14.0-18.0); LYMPHOCYTES # 0.7 10^3/ul (0.8-2.9); LYMPHOCYTES % 6.1 % (15.0-51.0); MEAN CORPUSCULAR HEMOGLOBIN 26.9 pg (29.0-33.0); MEAN CORPUSCULAR HGB CONC 31.9 g/dl (32.0-37.0); MEAN CORPUSCULAR VOLUME 84.3 fl (82.0-101.0); MEAN PLATELET VOLUME 10.2 fl (7.4-10.4); MONOCYTES % 8.8 % (0.0-11.0); NEUTROPHIL # 8.8 10^3/ul (1.6-7.5); NEUTROPHILS % 77.9 % (39.0-77.0); PLATELET COUNT 282 10^3/UL (140-415); RED BLOOD COUNT 3.24 10^6/ul (4.70-6.10); RED CELL DISTRIBUTION WIDTH 15.9 % (11.5-14.5)
[2018-12-31 06:30] LABS: WHITE BLOOD COUNT 11.3 10^3/ul (4.8-10.8)
[2018-12-31 06:59] LABS: ANION GAP 5 (5-13); BLOOD UREA NITROGEN 11 mg/dl (7-20); CALCIUM 8.8 mg/dl (8.4-10.2); CARBON DIOXIDE 24 mmol/L (21-31); CHLORIDE 113 mmol/L (97-110); CREATININE 0.89 mg/dl (0.61-1.24); Estimated GFR > 60 mL/min (>60); GLUCOSE 104 mg/dl (70-220); SODIUM 142 mmol/L (135-144)
[2018-12-31] MEDS: DILTIAZEM 60 MG TAB PO ×4 (12:16→21:20)
[2018-12-31] MEDS: AMIODARONE 200 MG TAB PO ×2 (12:17→21:19)
[2018-12-31] MEDS: MULTIVIT/CA CARB/B CMPLX/FA TAB PO (12:17)
[2018-12-31] MEDS: FOLIC ACID 1 MG TAB PO (12:17)
[2018-12-31] MEDS: LEFLUNOMIDE 20 MG TAB PO (12:17)
[2018-12-31] MEDS: CALCITRIOL 0.25 MCG CAP PO (12:18)
[2018-12-31] MEDS: POTASSIUM CHLORIDE (SR) 10 MEQ TAB PO ×2 (12:18→21:20)
[2018-12-31] MEDS: TACROLIMUS 1 MG CAP PO ×2 (12:18→21:19)
[2018-12-31] MEDS: MAGNESIUM OXIDE 400 MG TAB PO (12:18)
[2018-12-31] MEDS: ENOXAPARIN 40 MG/0.4 ML SYG SC (12:20)
[2018-12-31] MEDS: AZTREONAM 2 GM in SOD CHLORIDE 0.9% 100 ML IVPB ×2 (13:39→21:18)
[2018-12-31] MEDS: LIDOCAINE 1% (MPF) 5 ML VIAL SC (13:40)
[2018-12-31] MEDS: SOD PHOS MONO/DIBAS 250 MG TAB PO ×2 (16:53→23:37)
[2018-12-31] MEDS: LEVOFLOXACIN 500MG/D5W (PMX) 100 ML IVPB (18:07)
[2019-01-01] MEDS: metroNIDAZOLE 500 MG/NS (PMX) 100 ML IVPB ×3 (05:44→22:48)
[2019-01-01 06:07] LABS: ADD MAN DIFF? NO
[2019-01-01 06:33] LABS: WHITE BLOOD COUNT 11.2 10^3/ul (4.8-10.8)
[2019-01-01 06:33] LABS: BASOPHIL # 0.1 10^3/ul (0.0-0.1); BASOPHILS % 0.7 % (0.0-2.0); EOSINOPHILS # 0.7 10^3/ul (0.0-0.5); EOSINOPHILS % 6.6 % (0.0-7.0); HEMATOCRIT 29.9 % (42.0-52.0); HEMOGLOBIN 9.3 g/dl (14.0-18.0); LYMPHOCYTES # 0.9 10^3/ul (0.8-2.9); LYMPHOCYTES % 8.1 % (15.0-51.0); MEAN CORPUSCULAR HEMOGLOBIN 26.3 pg (29.0-33.0); MEAN CORPUSCULAR HGB CONC 31.1 g/dl (32.0-37.0); MEAN CORPUSCULAR VOLUME 84.7 fl (82.0-101.0); MEAN PLATELET VOLUME 10.2 fl (7.4-10.4); MONOCYTES % 9.1 % (0.0-11.0); NEUTROPHIL # 8.3 10^3/ul (1.6-7.5); NEUTROPHILS % 73.8 % (39.0-77.0); PLATELET COUNT 292 10^3/UL (140-415); RED BLOOD COUNT 3.53 10^6/ul (4.70-6.10); RED CELL DISTRIBUTION WIDTH 16.3 % (11.5-14.5)
[2019-01-01 06:51] LABS: ANION GAP 5 (5-13); BLOOD UREA NITROGEN 12 mg/dl (7-20); CALCIUM 8.8 mg/dl (8.4-10.2); CARBON DIOXIDE 24 mmol/L (21-31); CHLORIDE 113 mmol/L (97-110); CREATININE 0.93 mg/dl (0.61-1.24); Estimated GFR > 60 mL/min (>60); GLUCOSE 106 mg/dl (70-220); POTASSIUM 3.2 mmol/L (3.5-5.1); SODIUM 142 mmol/L (135-144)
[2019-01-01] MEDS: CALCITRIOL 0.25 MCG CAP PO (08:31)
[2019-01-01] MEDS: MAGNESIUM OXIDE 400 MG TAB PO (08:32)
[2019-01-01] MEDS: FOLIC ACID 1 MG TAB PO (08:32)
[2019-01-01] MEDS: LEFLUNOMIDE 20 MG TAB PO (08:32)
[2019-01-01] MEDS: TACROLIMUS 1 MG CAP PO ×2 (08:33→21:42)
[2019-01-01] MEDS: ENOXAPARIN 40 MG/0.4 ML SYG SC (08:36)
[2019-01-01] MEDS: POTASSIUM CHLORIDE 20 MEQ POWDER FOR ORAL SOLN PO (08:43)
[2019-01-01] MEDS: AMIODARONE 200 MG TAB PO ×2 (08:44→21:44)
[2019-01-01] MEDS: POTASSIUM CHLORIDE (SR) 10 MEQ TAB PO ×2 (08:45→21:42)
[2019-01-01] MEDS: DILTIAZEM (CD) 180 MG CAP PO (08:45)
[2019-01-01] MEDS: AZTREONAM 2 GM in SOD CHLORIDE 0.9% 100 ML IVPB ×2 (08:46→21:49)
[2019-01-01] MEDS: MULTIVIT/CA CARB/B CMPLX/FA TAB PO (08:54)
[2019-01-01] MEDS: SOD PHOS MONO/DIBAS 250 MG TAB PO ×2 (12:58→21:42)
[2019-01-01] MEDS: HYDROmorphONE 1 MG/ML SYG IV (13:54)
[2019-01-01] MEDS ORDERED: CALCIUM CARBONATE 500 MG CHEW TAB PO (15:30)
[2019-01-01] MEDS: LEVOFLOXACIN 500MG/D5W (PMX) 100 ML IVPB (17:41)
[2019-01-01] MEDS: FAMOTIDINE 20 MG TAB PO (21:42)
[2019-01-02 05:50] LABS: ADD MAN DIFF? NO
[2019-01-02 05:53] LABS: WHITE BLOOD COUNT 11.3 10^3/ul (4.8-10.8)
[2019-01-02 05:53] LABS: BASOPHIL # 0.1 10^3/ul (0.0-0.1); BASOPHILS % 0.9 % (0.0-2.0); EOSINOPHILS # 0.7 10^3/ul (0.0-0.5); EOSINOPHILS % 6.3 % (0.0-7.0); HEMATOCRIT 28.5 % (42.0-52.0); LYMPHOCYTES # 0.9 10^3/ul (0.8-2.9); LYMPHOCYTES % 8.3 % (15.0-51.0); MEAN CORPUSCULAR HEMOGLOBIN 27.1 pg (29.0-33.0); MEAN CORPUSCULAR HGB CONC 31.6 g/dl (32.0-37.0); MEAN CORPUSCULAR VOLUME 85.8 fl (82.0-101.0); MEAN PLATELET VOLUME 9.4 fl (7.4-10.4); MONOCYTE # 1.2 10^3/ul (0.3-0.9); MONOCYTES % 10.6 % (0.0-11.0); NEUTROPHILS % 71.1 % (39.0-77.0); PLATELET COUNT 287 10^3/UL (140-415); RED BLOOD COUNT 3.32 10^6/ul (4.70-6.10); RED CELL DISTRIBUTION WIDTH 16.8 % (11.5-14.5)
[2019-01-02 06:07] LABS: ALANINE AMINOTRANSFERASE 55 IU/L (13-69); ALBUMIN 2.5 g/dl (3.3-4.9); ALKALINE PHOSPHATASE 128 IU/L (42-121); ANION GAP 4 (5-13); ASPARTATE AMINO TRANSFERASE 112 IU/L (15-46); BILIRUBIN,INDIRECT 0.3 mg/dl (0-1.1); BILIRUBIN,TOTAL 0.3 mg/dl (0.2-1.3); BLOOD UREA NITROGEN 13 mg/dl (7-20); CALCIUM 8.8 mg/dl (8.4-10.2); CARBON DIOXIDE 23 mmol/L (21-31); CHLORIDE 114 mmol/L (97-110); Estimated GFR > 60 mL/min (>60); GLUCOSE 98 mg/dl (70-220); POTASSIUM 3.8 mmol/L (3.5-5.1); SODIUM 141 mmol/L (135-144); TOTAL PROTEIN 5.6 g/dl (6.1-8.1)
[2019-01-02 06:18] LABS: MAGNESIUM 1.2 mg/dl (1.7-2.5)
[2019-01-02 06:18] LABS: PHOSPHORUS 2.5 mg/dl (2.5-4.9)
[2019-01-02] MEDS: metroNIDAZOLE 500 MG/NS (PMX) 100 ML IVPB ×2 (06:56→14:03)
[2019-01-02] MEDS: CALCITRIOL 0.25 MCG CAP PO (09:36)
[2019-01-02] MEDS: AZTREONAM 2 GM in SOD CHLORIDE 0.9% 100 ML IVPB ×2 (09:36→20:29)
[2019-01-02] MEDS: POTASSIUM CHLORIDE (SR) 10 MEQ TAB PO ×2 (09:37→20:30)
[2019-01-02] MEDS: DILTIAZEM (CD) 180 MG CAP PO (09:37)
[2019-01-02] MEDS: MULTIVIT/CA CARB/B CMPLX/FA TAB PO (09:37)
[2019-01-02] MEDS: MAGNESIUM OXIDE 400 MG TAB PO ×2 (09:37→20:30)
[2019-01-02] MEDS: TACROLIMUS 1 MG CAP PO ×2 (09:38→20:30)
[2019-01-02] MEDS: AMIODARONE 200 MG TAB PO ×2 (09:38→20:30)
[2019-01-02] MEDS: FOLIC ACID 1 MG TAB PO (09:38)
[2019-01-02] MEDS: FAMOTIDINE 20 MG TAB PO ×2 (09:38→20:30)
[2019-01-02] MEDS: LEFLUNOMIDE 20 MG TAB PO (09:39)
[2019-01-02] MEDS: SOD PHOS MONO/DIBAS 250 MG TAB PO ×2 (09:39→20:29)
[2019-01-02] MEDS: ENOXAPARIN 40 MG/0.4 ML SYG SC (09:51)
[2019-01-02] MEDS ORDERED: MAGNESIUM SULFATE 2 GM/50 ML 50 ML IVPB (13:30)
[2019-01-02] MEDS: MAGNESIUM SULFATE 4 GM/100 ML 100 ML IVPB (14:12)
[2019-01-02] MEDS: LEVOFLOXACIN 500MG/D5W (PMX) 100 ML IVPB (17:22)
[2019-01-02] MEDS: metroNIDAZOLE 500 MG TAB PO (23:12)
[2019-01-03] MEDS: LEVOFLOXACIN 500 MG TAB PO (06:13)
[2019-01-03] MEDS: metroNIDAZOLE 500 MG TAB PO ×3 (06:13→21:49)
[2019-01-03 06:22] LABS: ADD MAN DIFF? NO
[2019-01-03 06:35] LABS: BASOPHIL # 0.1 10^3/ul (0.0-0.1); BASOPHILS % 1.4 % (0.0-2.0); EOSINOPHILS # 0.7 10^3/ul (0.0-0.5); EOSINOPHILS % 6.8 % (0.0-7.0); HEMOGLOBIN 9.7 g/dl (14.0-18.0); LYMPHOCYTES # 0.9 10^3/ul (0.8-2.9); LYMPHOCYTES % 9.1 % (15.0-51.0); MEAN CORPUSCULAR HEMOGLOBIN 27.1 pg (29.0-33.0); MEAN CORPUSCULAR HGB CONC 31.3 g/dl (32.0-37.0); MEAN CORPUSCULAR VOLUME 86.6 fl (82.0-101.0); MONOCYTE # 1.1 10^3/ul (0.3-0.9); MONOCYTES % 10.9 % (0.0-11.0); NEUTROPHILS % 68.3 % (39.0-77.0); PLATELET COUNT 293 10^3/UL (140-415); RED BLOOD COUNT 3.58 10^6/ul (4.70-6.10); RED CELL DISTRIBUTION WIDTH 17.7 % (11.5-14.5)
[2019-01-03 06:35] LABS: WHITE BLOOD COUNT 10.2 10^3/ul (4.8-10.8)
[2019-01-03] MEDS: SOD PHOS MONO/DIBAS 250 MG TAB PO ×2 (09:16→21:49)
[2019-01-03] MEDS: CALCITRIOL 0.25 MCG CAP PO (09:16)
[2019-01-03] MEDS: POTASSIUM CHLORIDE (SR) 10 MEQ TAB PO ×2 (09:17→21:50)
[2019-01-03] MEDS: MULTIVIT/CA CARB/B CMPLX/FA TAB PO (09:17)
[2019-01-03] MEDS: TACROLIMUS 1 MG CAP PO ×2 (09:17→21:49)
[2019-01-03] MEDS: LEFLUNOMIDE 20 MG TAB PO (09:18)
[2019-01-03] MEDS: AMIODARONE 200 MG TAB PO ×2 (09:18→21:49)
[2019-01-03] MEDS: FOLIC ACID 1 MG TAB PO (09:18)
[2019-01-03] MEDS: FAMOTIDINE 20 MG TAB PO ×2 (09:18→21:50)
[2019-01-03] MEDS: DILTIAZEM (CD) 180 MG CAP PO (09:18)
[2019-01-03] MEDS: MAGNESIUM OXIDE 400 MG TAB PO ×3 (09:18→21:49)
[2019-01-03] MEDS: ENOXAPARIN 40 MG/0.4 ML SYG SC (09:29)
[2019-01-03] MEDS: MAGNESIUM SULFATE 2 GM/50 ML 50 ML IVPB (10:40)
[2019-01-03] MEDS: HYDROmorphONE 1 MG/ML SYG IV (13:54)
[2019-01-04] MEDS: HYDROmorphONE 1 MG/ML SYG IV (01:54)
[2019-01-04] MEDS: metroNIDAZOLE 500 MG TAB PO ×3 (05:37→21:06)
[2019-01-04] MEDS: LEVOFLOXACIN 500 MG TAB PO (05:37)
[2019-01-04 06:12] LABS: ADD MAN DIFF? NO
[2019-01-04 06:24] LABS: WHITE BLOOD COUNT 11.7 10^3/ul (4.8-10.8)
[2019-01-04 06:24] LABS: BASOPHIL # 0.1 10^3/ul (0.0-0.1); BASOPHILS % 1.2 % (0.0-2.0); EOSINOPHILS # 0.7 10^3/ul (0.0-0.5); EOSINOPHILS % 5.8 % (0.0-7.0); HEMATOCRIT 34.9 % (42.0-52.0); HEMOGLOBIN 10.8 g/dl (14.0-18.0); LYMPHOCYTES # 1.3 10^3/ul (0.8-2.9); LYMPHOCYTES % 10.7 % (15.0-51.0); MEAN CORPUSCULAR HEMOGLOBIN 26.7 pg (29.0-33.0); MEAN CORPUSCULAR HGB CONC 30.9 g/dl (32.0-37.0); MEAN CORPUSCULAR VOLUME 86.2 fl (82.0-101.0); MEAN PLATELET VOLUME 9.8 fl (7.4-10.4); MONOCYTE # 1.2 10^3/ul (0.3-0.9); MONOCYTES % 10.3 % (0.0-11.0); NEUTROPHIL # 7.9 10^3/ul (1.6-7.5); PLATELET COUNT 320 10^3/UL (140-415); RED BLOOD COUNT 4.05 10^6/ul (4.70-6.10); RED CELL DISTRIBUTION WIDTH 18.9 % (11.5-14.5)
[2019-01-04 06:46] LABS: ALANINE AMINOTRANSFERASE 49 IU/L (13-69); ALBUMIN 2.9 g/dl (3.3-4.9); ALBUMIN/GLOBULIN RATIO 0.82; ALKALINE PHOSPHATASE 148 IU/L (42-121); ANION GAP 5 (5-13); ASPARTATE AMINO TRANSFERASE 74 IU/L (15-46); BILIRUBIN,INDIRECT 0.4 mg/dl (0-1.1); BILIRUBIN,TOTAL 0.4 mg/dl (0.2-1.3); BLOOD UREA NITROGEN 13 mg/dl (7-20); CALCIUM 9.8 mg/dl (8.4-10.2); CARBON DIOXIDE 23 mmol/L (21-31); CHLORIDE 113 mmol/L (97-110); Estimated GFR > 60 mL/min (>60); GLUCOSE 110 mg/dl (70-220); MAGNESIUM 1.6 mg/dl (1.7-2.5); PHOSPHORUS 3.2 mg/dl (2.5-4.9); POTASSIUM 4.4 mmol/L (3.5-5.1); SODIUM 141 mmol/L (135-144); TOTAL PROTEIN 6.4 g/dl (6.1-8.1)
[2019-01-04] MEDS: MAGNESIUM OXIDE 400 MG TAB PO ×4 (09:33→21:06)
[2019-01-04] MEDS: MULTIVIT/CA CARB/B CMPLX/FA TAB PO (09:33)
[2019-01-04] MEDS: POTASSIUM CHLORIDE (SR) 10 MEQ TAB PO ×2 (09:33→21:06)
[2019-01-04] MEDS: TACROLIMUS 1 MG CAP PO ×2 (09:33→21:06)
[2019-01-04] MEDS: FOLIC ACID 1 MG TAB PO (09:33)
[2019-01-04] MEDS: CALCITRIOL 0.25 MCG CAP PO (09:33)
[2019-01-04] MEDS: LEFLUNOMIDE 20 MG TAB PO (09:34)
[2019-01-04] MEDS: DILTIAZEM (CD) 180 MG CAP PO (09:34)
[2019-01-04] MEDS: FAMOTIDINE 20 MG TAB PO ×2 (09:34→21:07)
[2019-01-04] MEDS: ENOXAPARIN 40 MG/0.4 ML SYG SC (09:48)
[2019-01-04] MEDS: AMIODARONE 200 MG TAB PO (10:00)
[2019-01-04] MEDS: SOD PHOS MONO/DIBAS 250 MG TAB PO ×2 (10:30→21:06)
[2019-01-05 06:09] LABS: ADD MAN DIFF? NO
[2019-01-05 06:14] LABS: BASOPHIL # 0.1 10^3/ul (0.0-0.1); EOSINOPHILS # 0.5 10^3/ul (0.0-0.5); EOSINOPHILS % 5.5 % (0.0-7.0); HEMATOCRIT 30.9 % (42.0-52.0); HEMOGLOBIN 9.5 g/dl (14.0-18.0); LYMPHOCYTES # 1.1 10^3/ul (0.8-2.9); LYMPHOCYTES % 11.3 % (15.0-51.0); MEAN CORPUSCULAR HEMOGLOBIN 27.1 pg (29.0-33.0); MEAN CORPUSCULAR HGB CONC 30.7 g/dl (32.0-37.0); MEAN CORPUSCULAR VOLUME 88.3 fl (82.0-101.0); MEAN PLATELET VOLUME 9.9 fl (7.4-10.4); MONOCYTE # 1.1 10^3/ul (0.3-0.9); NEUTROPHIL # 6.5 10^3/ul (1.6-7.5); NEUTROPHILS % 67.2 % (39.0-77.0); PLATELET COUNT 262 10^3/UL (140-415); RED CELL DISTRIBUTION WIDTH 19.1 % (11.5-14.5)
[2019-01-05 06:14] LABS: WHITE BLOOD COUNT 9.7 10^3/ul (4.8-10.8)
[2019-01-05] MEDS: LEVOFLOXACIN 500 MG TAB PO (06:44)
[2019-01-05] MEDS: metroNIDAZOLE 500 MG TAB PO ×3 (06:44→21:58)
[2019-01-05 06:56] LABS: ALANINE AMINOTRANSFERASE 41 IU/L (13-69); ALBUMIN 2.7 g/dl (3.3-4.9); ALBUMIN/GLOBULIN RATIO 0.79; ALKALINE PHOSPHATASE 118 IU/L (42-121); ANION GAP 5 (5-13); ASPARTATE AMINO TRANSFERASE 49 IU/L (15-46); BILIRUBIN,INDIRECT 0.4 mg/dl (0-1.1); BILIRUBIN,TOTAL 0.4 mg/dl (0.2-1.3); BLOOD UREA NITROGEN 16 mg/dl (7-20); CALCIUM 9.2 mg/dl (8.4-10.2); CARBON DIOXIDE 21 mmol/L (21-31); CHLORIDE 115 mmol/L (97-110); CREATININE 1.18 mg/dl (0.61-1.24); Estimated GFR > 60 mL/min (>60); GLUCOSE 96 mg/dl (70-220); POTASSIUM 4.3 mmol/L (3.5-5.1); SODIUM 141 mmol/L (135-144); TOTAL PROTEIN 6.1 g/dl (6.1-8.1)
[2019-01-05] MEDS: MULTIVIT/CA CARB/B CMPLX/FA TAB PO (08:24)
[2019-01-05] MEDS: CALCITRIOL 0.25 MCG CAP PO (08:24)
[2019-01-05] MEDS: FOLIC ACID 1 MG TAB PO (08:24)
[2019-01-05] MEDS: LEFLUNOMIDE 20 MG TAB PO (08:24)
[2019-01-05] MEDS: TACROLIMUS 1 MG CAP PO ×2 (08:25→22:00)
[2019-01-05] MEDS: AMIODARONE 200 MG TAB PO (08:25)
[2019-01-05] MEDS: SOD PHOS MONO/DIBAS 250 MG TAB PO ×2 (08:25→21:57)
[2019-01-05] MEDS: FAMOTIDINE 20 MG TAB PO ×2 (08:25→21:58)
[2019-01-05] MEDS: POTASSIUM CHLORIDE (SR) 10 MEQ TAB PO ×2 (08:25→21:57)
[2019-01-05] MEDS: DILTIAZEM (CD) 180 MG CAP PO (08:26)
[2019-01-05] MEDS: MAGNESIUM OXIDE 400 MG TAB PO ×3 (08:26→21:58)
[2019-01-05] MEDS: ENOXAPARIN 40 MG/0.4 ML SYG SC (08:34)
[2019-01-05 08:56] LABS: MAGNESIUM 1.6 mg/dl (1.7-2.5)
[2019-01-05] MEDS: HYDROmorphONE 1 MG/ML SYG IV (10:09)
[2019-01-06 05:56] LABS: ADD MAN DIFF? NO
[2019-01-06 06:00] LABS: BASOPHIL # 0.1 10^3/ul (0.0-0.1); EOSINOPHILS # 0.4 10^3/ul (0.0-0.5); HEMATOCRIT 36.9 % (42.0-52.0); HEMOGLOBIN 11.4 g/dl (14.0-18.0); LYMPHOCYTES # 0.9 10^3/ul (0.8-2.9); LYMPHOCYTES % 9.4 % (15.0-51.0); MEAN CORPUSCULAR HGB CONC 30.9 g/dl (32.0-37.0); MEAN CORPUSCULAR VOLUME 87.4 fl (82.0-101.0); MEAN PLATELET VOLUME 9.7 fl (7.4-10.4); MONOCYTE # 1.1 10^3/ul (0.3-0.9); MONOCYTES % 10.6 % (0.0-11.0); NEUTROPHILS % 71.5 % (39.0-77.0); PLATELET COUNT 253 10^3/UL (140-415); RED BLOOD COUNT 4.22 10^6/ul (4.70-6.10); RED CELL DISTRIBUTION WIDTH 20.3 % (11.5-14.5)
[2019-01-06 06:00] LABS: WHITE BLOOD COUNT 9.9 10^3/ul (4.8-10.8)
[2019-01-06] MEDS: metroNIDAZOLE 500 MG TAB PO ×3 (06:20→21:38)
[2019-01-06] MEDS: LEVOFLOXACIN 500 MG TAB PO (06:20)
[2019-01-06 06:42] LABS: ALANINE AMINOTRANSFERASE 33 IU/L (13-69); ALBUMIN 3.1 g/dl (3.3-4.9); ALBUMIN/GLOBULIN RATIO 0.88; ALKALINE PHOSPHATASE 126 IU/L (42-121); ANION GAP 4 (5-13); ASPARTATE AMINO TRANSFERASE 43 IU/L (15-46); BILIRUBIN,INDIRECT 0.5 mg/dl (0-1.1); BILIRUBIN,TOTAL 0.5 mg/dl (0.2-1.3); BLOOD UREA NITROGEN 17 mg/dl (7-20); CALCIUM 10.1 mg/dl (8.4-10.2); CARBON DIOXIDE 23 mmol/L (21-31); CHLORIDE 114 mmol/L (97-110); CREATININE 1.27 mg/dl (0.61-1.24); Estimated GFR 58 mL/min (>60); GLUCOSE 102 mg/dl (70-220); POTASSIUM 4.5 mmol/L (3.5-5.1); SODIUM 141 mmol/L (135-144); TOTAL PROTEIN 6.6 g/dl (6.1-8.1)
[2019-01-06 06:49] LABS: MAGNESIUM 1.5 mg/dl (1.7-2.5)
[2019-01-06] MEDS: LEFLUNOMIDE 20 MG TAB PO (08:41)
[2019-01-06] MEDS: MAGNESIUM OXIDE 400 MG TAB PO ×3 (08:42→21:06)
[2019-01-06] MEDS: POTASSIUM CHLORIDE (SR) 10 MEQ TAB PO ×2 (08:42→21:05)
[2019-01-06] MEDS: CALCITRIOL 0.25 MCG CAP PO (08:42)
[2019-01-06] MEDS: FAMOTIDINE 20 MG TAB PO ×2 (08:42→21:05)
[2019-01-06] MEDS: FOLIC ACID 1 MG TAB PO (08:42)
[2019-01-06] MEDS: SOD PHOS MONO/DIBAS 250 MG TAB PO ×2 (08:43→21:38)
[2019-01-06] MEDS: TACROLIMUS 1 MG CAP PO ×2 (08:43→21:06)
[2019-01-06] MEDS: AMIODARONE 200 MG TAB PO (08:44)
[2019-01-06] MEDS: MULTIVIT/CA CARB/B CMPLX/FA TAB PO (08:44)
[2019-01-06] MEDS: DILTIAZEM (CD) 180 MG CAP PO (08:45)
[2019-01-06] MEDS: ENOXAPARIN 40 MG/0.4 ML SYG SC (08:49)
[2019-01-07 05:29] LABS: ADD MAN DIFF? NO
[2019-01-07 05:40] LABS: BASOPHIL # 0.1 10^3/ul (0.0-0.1); BASOPHILS % 1.2 % (0.0-2.0); EOSINOPHILS # 0.4 10^3/ul (0.0-0.5); EOSINOPHILS % 4.2 % (0.0-7.0); HEMATOCRIT 34.6 % (42.0-52.0); HEMOGLOBIN 10.7 g/dl (14.0-18.0); LYMPHOCYTES # 1.1 10^3/ul (0.8-2.9); LYMPHOCYTES % 11.7 % (15.0-51.0); MEAN CORPUSCULAR HEMOGLOBIN 27.3 pg (29.0-33.0); MEAN CORPUSCULAR HGB CONC 30.9 g/dl (32.0-37.0); MEAN CORPUSCULAR VOLUME 88.3 fl (82.0-101.0); MEAN PLATELET VOLUME 9.8 fl (7.4-10.4); MONOCYTES % 10.8 % (0.0-11.0); NEUTROPHIL # 6.3 10^3/ul (1.6-7.5); NEUTROPHILS % 68.9 % (39.0-77.0); PLATELET COUNT 238 10^3/UL (140-415); RED BLOOD COUNT 3.92 10^6/ul (4.70-6.10); RED CELL DISTRIBUTION WIDTH 20.4 % (11.5-14.5)
[2019-01-07 05:40] LABS: WHITE BLOOD COUNT 9.1 10^3/ul (4.8-10.8)
[2019-01-07 05:56] LABS: MAGNESIUM 1.5 mg/dl (1.7-2.5)
[2019-01-07] MEDS: LEVOFLOXACIN 500 MG TAB PO (06:09)
[2019-01-07] MEDS: metroNIDAZOLE 500 MG TAB PO ×3 (06:09→21:33)
[2019-01-07 06:14] LABS: ALANINE AMINOTRANSFERASE 36 IU/L (13-69); ALBUMIN 3.1 g/dl (3.3-4.9); ALBUMIN/GLOBULIN RATIO 0.86; ALKALINE PHOSPHATASE 131 IU/L (42-121); ANION GAP 6 (5-13); ASPARTATE AMINO TRANSFERASE 42 IU/L (15-46); BILIRUBIN,INDIRECT 0.4 mg/dl (0-1.1); BILIRUBIN,TOTAL 0.4 mg/dl (0.2-1.3); BLOOD UREA NITROGEN 18 mg/dl (7-20); CALCIUM 9.7 mg/dl (8.4-10.2); CARBON DIOXIDE 22 mmol/L (21-31); CHLORIDE 114 mmol/L (97-110); CREATININE 1.35 mg/dl (0.61-1.24); Estimated GFR 54 mL/min (>60); GLUCOSE 100 mg/dl (70-220); POTASSIUM 4.5 mmol/L (3.5-5.1); SODIUM 142 mmol/L (135-144); TOTAL PROTEIN 6.7 g/dl (6.1-8.1)
[2019-01-07] MEDS: MAGNESIUM SULFATE 2 GM/50 ML 50 ML IVPB (08:47)
[2019-01-07] MEDS: LEFLUNOMIDE 20 MG TAB PO (08:48)
[2019-01-07] MEDS: FOLIC ACID 1 MG TAB PO (08:48)
[2019-01-07] MEDS: MAGNESIUM OXIDE 400 MG TAB PO ×3 (08:48→21:33)
[2019-01-07] MEDS: POTASSIUM CHLORIDE (SR) 10 MEQ TAB PO ×2 (08:48→21:33)
[2019-01-07] MEDS: TACROLIMUS 1 MG CAP PO ×2 (08:48→21:33)
[2019-01-07] MEDS: FAMOTIDINE 20 MG TAB PO ×2 (08:48→21:33)
[2019-01-07] MEDS: MULTIVIT/CA CARB/B CMPLX/FA TAB PO (08:48)
[2019-01-07] MEDS: DILTIAZEM (CD) 180 MG CAP PO (08:49)
[2019-01-07] MEDS: AMIODARONE 200 MG TAB PO (08:49)
[2019-01-07] MEDS: ENOXAPARIN 40 MG/0.4 ML SYG SC (08:57)
[2019-01-07] MEDS: HYDROmorphONE 1 MG/ML SYG IV (09:06)
[2019-01-07] MEDS: SOD PHOS MONO/DIBAS 250 MG TAB PO ×2 (12:49→21:32)
[2019-01-07] MEDS: SOD CHLORIDE 0.9% 1,000 ML IV (15:20)
[2019-01-08] MEDS: SOD CHLORIDE 0.9% 1,000 ML IV ×2 (04:10→17:43)
[2019-01-08 05:59] LABS: ADD MAN DIFF? NO
[2019-01-08 06:07] LABS: WHITE BLOOD COUNT 7.7 10^3/ul (4.8-10.8)
[2019-01-08 06:07] LABS: BASOPHIL # 0.1 10^3/ul (0.0-0.1); BASOPHILS % 1.2 % (0.0-2.0); EOSINOPHILS # 0.3 10^3/ul (0.0-0.5); EOSINOPHILS % 4.3 % (0.0-7.0); HEMATOCRIT 32.9 % (42.0-52.0); LYMPHOCYTES # 0.9 10^3/ul (0.8-2.9); LYMPHOCYTES % 11.8 % (15.0-51.0); MEAN CORPUSCULAR HGB CONC 30.4 g/dl (32.0-37.0); MEAN CORPUSCULAR VOLUME 88.9 fl (82.0-101.0); MEAN PLATELET VOLUME 9.7 fl (7.4-10.4); MONOCYTE # 0.9 10^3/ul (0.3-0.9); MONOCYTES % 12.2 % (0.0-11.0); NEUTROPHIL # 5.3 10^3/ul (1.6-7.5); NEUTROPHILS % 68.7 % (39.0-77.0); PLATELET COUNT 219 10^3/UL (140-415); RED CELL DISTRIBUTION WIDTH 20.7 % (11.5-14.5)
[2019-01-08] MEDS: metroNIDAZOLE 500 MG TAB PO ×3 (06:15→22:08)
[2019-01-08] MEDS: LEVOFLOXACIN 500 MG TAB PO (06:15)
[2019-01-08 06:40] LABS: ALANINE AMINOTRANSFERASE 33 IU/L (13-69); ALBUMIN 2.7 g/dl (3.3-4.9); ALBUMIN/GLOBULIN RATIO 0.79; ALKALINE PHOSPHATASE 111 IU/L (42-121); ANION GAP 5 (5-13); ASPARTATE AMINO TRANSFERASE 37 IU/L (15-46); BILIRUBIN,INDIRECT 0.4 mg/dl (0-1.1); BILIRUBIN,TOTAL 0.4 mg/dl (0.2-1.3); BLOOD UREA NITROGEN 18 mg/dl (7-20); CALCIUM 9.1 mg/dl (8.4-10.2); CARBON DIOXIDE 21 mmol/L (21-31); CHLORIDE 115 mmol/L (97-110); CREATININE 1.35 mg/dl (0.61-1.24); Estimated GFR 54 mL/min (>60); GLUCOSE 93 mg/dl (70-220); POTASSIUM 4.4 mmol/L (3.5-5.1); SODIUM 141 mmol/L (135-144); TOTAL PROTEIN 6.1 g/dl (6.1-8.1)
[2019-01-08] MEDS: MULTIVIT/CA CARB/B CMPLX/FA TAB PO (08:45)
[2019-01-08] MEDS: LEFLUNOMIDE 20 MG TAB PO (08:45)
[2019-01-08] MEDS: SOD PHOS MONO/DIBAS 250 MG TAB PO ×2 (08:45→20:10)
[2019-01-08] MEDS: TACROLIMUS 1 MG CAP PO ×2 (08:45→20:10)
[2019-01-08] MEDS: FAMOTIDINE 20 MG TAB PO ×2 (08:46→20:11)
[2019-01-08] MEDS: DILTIAZEM (CD) 180 MG CAP PO (08:46)
[2019-01-08] MEDS: AMIODARONE 200 MG TAB PO (08:46)
[2019-01-08] MEDS: FOLIC ACID 1 MG TAB PO (08:46)
[2019-01-08] MEDS: MAGNESIUM OXIDE 400 MG TAB PO ×3 (08:46→20:11)
[2019-01-08] MEDS: POTASSIUM CHLORIDE (SR) 10 MEQ TAB PO ×2 (08:46→20:11)
[2019-01-08] MEDS: ENOXAPARIN 40 MG/0.4 ML SYG SC (09:00)
[2019-01-08] MEDS: HYDROmorphONE 1 MG/ML SYG IV (10:43)
[2019-01-09] MEDS: metroNIDAZOLE 500 MG TAB PO ×3 (05:35→21:46)
[2019-01-09] MEDS: LEVOFLOXACIN 500 MG TAB PO (05:35)
[2019-01-09] MEDS: SOD CHLORIDE 0.9% 1,000 ML IV ×2 (05:36→18:23)
[2019-01-09 06:32] LABS: ADD MAN DIFF? NO
[2019-01-09 06:38] LABS: BASOPHIL # 0.1 10^3/ul (0.0-0.1); BASOPHILS % 0.9 % (0.0-2.0); EOSINOPHILS # 0.3 10^3/ul (0.0-0.5); EOSINOPHILS % 2.7 % (0.0-7.0); HEMATOCRIT 31.4 % (42.0-52.0); HEMOGLOBIN 9.5 g/dl (14.0-18.0); LYMPHOCYTES # 0.8 10^3/ul (0.8-2.9); LYMPHOCYTES % 8.7 % (15.0-51.0); MEAN CORPUSCULAR HEMOGLOBIN 27.5 pg (29.0-33.0); MEAN CORPUSCULAR HGB CONC 30.3 g/dl (32.0-37.0); MEAN CORPUSCULAR VOLUME 90.8 fl (82.0-101.0); MEAN PLATELET VOLUME 10.4 fl (7.4-10.4); NEUTROPHILS % 75.3 % (39.0-77.0); PLATELET COUNT 242 10^3/UL (140-415); RED BLOOD COUNT 3.46 10^6/ul (4.70-6.10); RED CELL DISTRIBUTION WIDTH 21.1 % (11.5-14.5)
[2019-01-09 06:38] LABS: WHITE BLOOD COUNT 9.3 10^3/ul (4.8-10.8)
[2019-01-09 07:24] LABS: ALANINE AMINOTRANSFERASE 32 IU/L (13-69); ALBUMIN 2.4 g/dl (3.3-4.9); ALBUMIN/GLOBULIN RATIO 0.85; ALKALINE PHOSPHATASE 105 IU/L (42-121); ANION GAP 4 (5-13); ASPARTATE AMINO TRANSFERASE 39 IU/L (15-46); BILIRUBIN,INDIRECT 0.5 mg/dl (0-1.1); BILIRUBIN,TOTAL 0.5 mg/dl (0.2-1.3); BLOOD UREA NITROGEN 13 mg/dl (7-20); CALCIUM 9.1 mg/dl (8.4-10.2); CARBON DIOXIDE 22 mmol/L (21-31); CHLORIDE 112 mmol/L (97-110); CREATININE 1.23 mg/dl (0.61-1.24); Estimated GFR > 60 mL/min (>60); GLUCOSE 90 mg/dl (70-220); MAGNESIUM 1.5 mg/dl (1.7-2.5); PHOSPHORUS 3.2 mg/dl (2.5-4.9); POTASSIUM 4.7 mmol/L (3.5-5.1); SODIUM 138 mmol/L (135-144); TOTAL PROTEIN 5.2 g/dl (6.1-8.1)
[2019-01-09] MEDS: SOD PHOS MONO/DIBAS 250 MG TAB PO ×2 (09:38→21:51)
[2019-01-09] MEDS: FAMOTIDINE 20 MG TAB PO ×2 (09:38→21:47)
[2019-01-09] MEDS: DILTIAZEM (CD) 180 MG CAP PO (09:38)
[2019-01-09] MEDS: TACROLIMUS 1 MG CAP PO ×2 (09:38→21:47)
[2019-01-09] MEDS: FOLIC ACID 1 MG TAB PO (09:38)
[2019-01-09] MEDS: AMIODARONE 200 MG TAB PO (09:38)
[2019-01-09] MEDS: MULTIVIT/CA CARB/B CMPLX/FA TAB PO (09:38)
[2019-01-09] MEDS: MAGNESIUM OXIDE 400 MG TAB PO ×3 (09:38→21:47)
[2019-01-09] MEDS: POTASSIUM CHLORIDE (SR) 10 MEQ TAB PO ×2 (09:39→21:47)
[2019-01-09] MEDS: LEFLUNOMIDE 20 MG TAB PO (09:39)
[2019-01-09] MEDS: ENOXAPARIN 40 MG/0.4 ML SYG SC (09:41)
[2019-01-09 18:06] LABS: TACROLIMUS 12.2 mcg/L
[2019-01-10] MEDS: LEVOFLOXACIN 500 MG TAB PO (06:15)
[2019-01-10] MEDS: [UNRECOGNIZED DRUG - OTHER] XX (08:00)
[2019-01-10] MEDS: LEFLUNOMIDE 20 MG TAB PO (08:11)
[2019-01-10] MEDS: MAGNESIUM OXIDE 400 MG TAB PO ×3 (08:11→20:22)
[2019-01-10] MEDS: POTASSIUM CHLORIDE (SR) 10 MEQ TAB PO ×2 (08:11→20:22)
[2019-01-10] MEDS: FAMOTIDINE 20 MG TAB PO ×2 (08:11→20:23)
[2019-01-10] MEDS: FOLIC ACID 1 MG TAB PO (08:11)
[2019-01-10] MEDS: MULTIVIT/CA CARB/B CMPLX/FA TAB PO (08:12)
[2019-01-10] MEDS: SOD PHOS MONO/DIBAS 250 MG TAB PO ×2 (08:12→20:21)
[2019-01-10] MEDS: SOD CHLORIDE 0.9% 1,000 ML IV (08:13)
[2019-01-10] MEDS: DILTIAZEM (CD) 180 MG CAP PO (08:13)
[2019-01-10] MEDS: AMIODARONE 200 MG TAB PO (08:13)
[2019-01-10] MEDS: TACROLIMUS 1 MG CAP PO ×2 (08:42→20:22)
[2019-01-10] MEDS: metroNIDAZOLE 250 MG TAB PO ×3 (08:42→20:23)
[2019-01-10] MEDS ORDERED: TACROLIMUS 0.5 MG CAP PO (09:00)
[2019-01-10 10:08] LABS: ADD MAN DIFF? NO
[2019-01-10 10:10] LABS: WHITE BLOOD COUNT 8.3 10^3/ul (4.8-10.8)
[2019-01-10 10:10] LABS: BASOPHIL # 0.1 10^3/ul (0.0-0.1); BASOPHILS % 0.8 % (0.0-2.0); EOSINOPHILS # 0.3 10^3/ul (0.0-0.5); EOSINOPHILS % 3.3 % (0.0-7.0); HEMATOCRIT 31.7 % (42.0-52.0); HEMOGLOBIN 9.6 g/dl (14.0-18.0); LYMPHOCYTES # 0.9 10^3/ul (0.8-2.9); MEAN CORPUSCULAR HEMOGLOBIN 27.4 pg (29.0-33.0); MEAN CORPUSCULAR HGB CONC 30.3 g/dl (32.0-37.0); MEAN CORPUSCULAR VOLUME 90.3 fl (82.0-101.0); MEAN PLATELET VOLUME 9.9 fl (7.4-10.4); MONOCYTE # 0.9 10^3/ul (0.3-0.9); MONOCYTES % 11.2 % (0.0-11.0); NEUTROPHILS % 72.1 % (39.0-77.0); PLATELET COUNT 214 10^3/UL (140-415); RED BLOOD COUNT 3.51 10^6/ul (4.70-6.10); RED CELL DISTRIBUTION WIDTH 21.3 % (11.5-14.5)
[2019-01-10 10:34] LABS: ANION GAP 8 (5-13); BLOOD UREA NITROGEN 12 mg/dl (7-20); CALCIUM 8.8 mg/dl (8.4-10.2); CARBON DIOXIDE 22 mmol/L (21-31); CHLORIDE 113 mmol/L (97-110); CREATININE 1.08 mg/dl (0.61-1.24); Estimated GFR > 60 mL/min (>60); GLUCOSE 82 mg/dl (70-220); MAGNESIUM 1.4 mg/dl (1.7-2.5); PHOSPHORUS 2.8 mg/dl (2.5-4.9); POTASSIUM 4.5 mmol/L (3.5-5.1); SODIUM 143 mmol/L (135-144)
[2019-01-10] MEDS ORDERED: MIDAZOLAM 1 MG/ML 2 ML INJ ×2 (12:19→12:22)
[2019-01-10] MEDS ORDERED: PROPOFOL 100 ML (12:19)
[2019-01-10] MEDS ORDERED: morphine SULFATE/PF (10 MG/10 ML) INJ ×2 (12:19→12:21)
[2019-01-10] MEDS ORDERED: PHENYLephrine (100 MCG/ML) 10ML SYG (12:55)
[2019-01-10] MEDS ORDERED: POLYMYXIN B 500000 UNIT INJ (13:03)
[2019-01-10] MEDS ORDERED: BACITRACIN 50000 UNITS INJ (13:04)
[2019-01-10] MEDS: POLYMYXIN/BACITRACIN 1L IRRIG (13:05)
[2019-01-10] MEDS: BACITRACIN 50000 UNITS INJ (13:29)
[2019-01-10] MEDS: POLYMYXIN B 500000 UNIT INJ (13:29)
[2019-01-10] MEDS: ALBUMIN HUMAN 5% 250 ML IV (15:35)
[2019-01-10] MEDS: DIPHENHYDRAMINE 50 MG CAP PO (17:07)
[2019-01-10] MEDS: SOD CHLORIDE 0.9% 250 ML IV (17:08)
[2019-01-10] MEDS: AMPHOTERICIN B LIPOSOME IVPB (17:59)
[2019-01-10] MEDS: DEXTROSE 5% IVPB (17:59)
[2019-01-11] MEDS: HYDROmorphONE 1 MG/ML SYG IV (00:11)
[2019-01-11] MEDS: LEVOFLOXACIN 500 MG TAB PO (05:44)
[2019-01-11] MEDS: metroNIDAZOLE 250 MG TAB PO ×3 (05:44→21:26)
[2019-01-11 06:02] LABS: ADD MAN DIFF? NO
[2019-01-11 06:22] LABS: WHITE BLOOD COUNT 8.6 10^3/ul (4.8-10.8)
[2019-01-11 06:22] LABS: BASOPHIL # 0.1 10^3/ul (0.0-0.1); BASOPHILS % 0.7 % (0.0-2.0); EOSINOPHILS # 0.3 10^3/ul (0.0-0.5); EOSINOPHILS % 2.9 % (0.0-7.0); HEMATOCRIT 28.1 % (42.0-52.0); HEMOGLOBIN 8.7 g/dl (14.0-18.0); LYMPHOCYTES # 0.9 10^3/ul (0.8-2.9); LYMPHOCYTES % 10.2 % (15.0-51.0); MEAN CORPUSCULAR HEMOGLOBIN 27.9 pg (29.0-33.0); MEAN CORPUSCULAR VOLUME 90.1 fl (82.0-101.0); MEAN PLATELET VOLUME 11.3 fl (7.4-10.4); MONOCYTE # 1.2 10^3/ul (0.3-0.9); MONOCYTES % 14.3 % (0.0-11.0); NEUTROPHIL # 6.1 10^3/ul (1.6-7.5); NEUTROPHILS % 70.7 % (39.0-77.0); PLATELET COUNT 153 10^3/UL (140-415); RED BLOOD COUNT 3.12 10^6/ul (4.70-6.10); RED CELL DISTRIBUTION WIDTH 21.5 % (11.5-14.5)
[2019-01-11] MEDS: LEFLUNOMIDE 20 MG TAB PO (08:09)
[2019-01-11] MEDS: MAGNESIUM OXIDE 400 MG TAB PO ×3 (08:09→20:15)
[2019-01-11] MEDS: AMIODARONE 200 MG TAB PO (08:09)
[2019-01-11] MEDS: POTASSIUM CHLORIDE (SR) 10 MEQ TAB PO ×2 (08:10→20:15)
[2019-01-11] MEDS: FAMOTIDINE 20 MG TAB PO ×2 (08:10→20:14)
[2019-01-11] MEDS: DILTIAZEM (CD) 180 MG CAP PO (08:10)
[2019-01-11] MEDS: FOLIC ACID 1 MG TAB PO (08:10)
[2019-01-11] MEDS: MULTIVIT/CA CARB/B CMPLX/FA TAB PO (08:11)
[2019-01-11] MEDS: SOD PHOS MONO/DIBAS 250 MG TAB PO ×2 (08:11→20:14)
[2019-01-11] MEDS: TACROLIMUS 1 MG CAP PO ×2 (08:11→20:14)
[2019-01-11 08:34] LABS: ALANINE AMINOTRANSFERASE 34 IU/L (13-69); ALBUMIN 2.7 g/dl (3.3-4.9); ALBUMIN/GLOBULIN RATIO 0.81; ALKALINE PHOSPHATASE 84 IU/L (42-121); ANION GAP 7 (5-13); ASPARTATE AMINO TRANSFERASE 46 IU/L (15-46); BILIRUBIN,INDIRECT 0.3 mg/dl (0-1.1); BILIRUBIN,TOTAL 0.3 mg/dl (0.2-1.3); BLOOD UREA NITROGEN 14 mg/dl (7-20); CALCIUM 9.1 mg/dl (8.4-10.2); CARBON DIOXIDE 19 mmol/L (21-31); CHLORIDE 115 mmol/L (97-110); CREATININE 1.19 mg/dl (0.61-1.24); Estimated GFR > 60 mL/min (>60); GLUCOSE 74 mg/dl (70-220); MAGNESIUM 1.5 mg/dl (1.7-2.5); PHOSPHORUS 3.2 mg/dl (2.5-4.9); POTASSIUM 4.9 mmol/L (3.5-5.1); SODIUM 141 mmol/L (135-144)
[2019-01-11] MEDS: CALCITRIOL 0.25 MCG CAP PO (08:52)
[2019-01-11] MEDS: MAGNESIUM SULFATE 2 GM/50 ML 50 ML IVPB (08:52)
[2019-01-11 11:53] LABS: IRON 32 ug/dl (35-150)
[2019-01-11 12:02] LABS: % IRON SATURATION 21 % SAT (22-52); TOTAL IRON BINDING CAPACITY 154 ug/dl (241-421)
[2019-01-11] MEDS: DIPHENHYDRAMINE 50 MG CAP PO (16:38)
[2019-01-11] MEDS: DEXTROSE 5% IVPB (17:37)
[2019-01-11] MEDS: AMPHOTERICIN B LIPOSOME IVPB (17:37)
[2019-01-12] MEDS: LEVOFLOXACIN 500 MG TAB PO (05:08)
[2019-01-12] MEDS: metroNIDAZOLE 250 MG TAB PO ×3 (05:08→21:01)
[2019-01-12 05:42] LABS: ADD MAN DIFF? NO
[2019-01-12 05:49] LABS: WHITE BLOOD COUNT 8.3 10^3/ul (4.8-10.8)
[2019-01-12 05:49] LABS: ABNORMAL IP MESSAGE 1; BASOPHIL # 0.1 10^3/ul (0.0-0.1); BASOPHILS % 0.8 % (0.0-2.0); EOSINOPHILS # 0.3 10^3/ul (0.0-0.5); EOSINOPHILS % 3.3 % (0.0-7.0); HEMOGLOBIN 9.7 g/dl (14.0-18.0); LYMPHOCYTES # 0.9 10^3/ul (0.8-2.9); LYMPHOCYTES % 10.3 % (15.0-51.0); MEAN CORPUSCULAR HGB CONC 31.3 g/dl (32.0-37.0); MEAN CORPUSCULAR VOLUME 89.3 fl (82.0-101.0); MEAN PLATELET VOLUME 10.6 fl (7.4-10.4); MONOCYTE # 1.5 10^3/ul (0.3-0.9); MONOCYTES % 18.2 % (0.0-11.0); NEUTROPHIL # 5.5 10^3/ul (1.6-7.5); NEUTROPHILS % 66.4 % (39.0-77.0); PLATELET COUNT 195 10^3/UL (140-415); POSITIVE DIFF @See below; RED BLOOD COUNT 3.47 10^6/ul (4.70-6.10); RED CELL DISTRIBUTION WIDTH 21.6 % (11.5-14.5)
[2019-01-12 06:23] LABS: ALANINE AMINOTRANSFERASE 25 IU/L (13-69); ALBUMIN 2.9 g/dl (3.3-4.9); ALBUMIN/GLOBULIN RATIO 0.93; ALKALINE PHOSPHATASE 103 IU/L (42-121); ANION GAP 8 (5-13); ASPARTATE AMINO TRANSFERASE 38 IU/L (15-46); BILIRUBIN,INDIRECT 0.4 mg/dl (0-1.1); BILIRUBIN,TOTAL 0.4 mg/dl (0.2-1.3); BLOOD UREA NITROGEN 15 mg/dl (7-20); CALCIUM 9.5 mg/dl (8.4-10.2); CARBON DIOXIDE 22 mmol/L (21-31); CHLORIDE 110 mmol/L (97-110); CREATININE 1.27 mg/dl (0.61-1.24); Estimated GFR 58 mL/min (>60); GLUCOSE 93 mg/dl (70-220); MAGNESIUM 1.8 mg/dl (1.7-2.5); PHOSPHORUS 3.2 mg/dl (2.5-4.9); POTASSIUM 4.3 mmol/L (3.5-5.1); SODIUM 140 mmol/L (135-144)
[2019-01-12] MEDS: CALCITRIOL 0.25 MCG CAP PO (08:09)
[2019-01-12] MEDS: SOD PHOS MONO/DIBAS 250 MG TAB PO ×2 (08:10→20:46)
[2019-01-12] MEDS: MAGNESIUM OXIDE 400 MG TAB PO ×3 (08:10→20:45)
[2019-01-12] MEDS: FAMOTIDINE 20 MG TAB PO ×2 (08:10→20:47)
[2019-01-12] MEDS: MULTIVIT/CA CARB/B CMPLX/FA TAB PO (08:10)
[2019-01-12] MEDS: FOLIC ACID 1 MG TAB PO (08:11)
[2019-01-12] MEDS: AMIODARONE 200 MG TAB PO ×2 (08:11→20:45)
[2019-01-12] MEDS: LEFLUNOMIDE 20 MG TAB PO (08:11)
[2019-01-12] MEDS: TACROLIMUS 1 MG CAP PO (08:11)
[2019-01-12] MEDS: POTASSIUM CHLORIDE (SR) 10 MEQ TAB PO ×2 (08:11→20:46)
[2019-01-12] MEDS: DILTIAZEM (CD) 180 MG CAP PO (08:11)
[2019-01-12] MEDS: DILTIAZEM 60 MG TAB PO (09:30)
[2019-01-12] MEDS: ENOXAPARIN 40 MG/0.4 ML SYG SC (10:17)
[2019-01-12] MEDS: HYDROmorphONE 1 MG/ML SYG IV (12:26)
[2019-01-12] MEDS: DIPHENHYDRAMINE 50 MG CAP PO (16:45)
[2019-01-12] MEDS: DEXTROSE 5% IVPB (17:22)
[2019-01-12] MEDS: AMPHOTERICIN B LIPOSOME IVPB (17:22)
[2019-01-12] MEDS: APIXABAN 5 MG TABLET PO (20:45)
[2019-01-12] MEDS: TACROLIMUS 0.5 MG CAP PO (20:47)
[2019-01-13] MEDS: SOD CHLORIDE 0.9% 1,000 ML IV ×2 (09:48→21:00)
[2019-01-13] MEDS: POTASSIUM CHLORIDE (SR) 10 MEQ TAB PO ×2 (09:49→21:10)
[2019-01-13] MEDS: MULTIVIT/CA CARB/B CMPLX/FA TAB PO (09:49)
[2019-01-13] MEDS: SOD PHOS MONO/DIBAS 250 MG TAB PO ×2 (09:49→22:03)
[2019-01-13] MEDS: APIXABAN 5 MG TABLET PO ×2 (09:49→21:10)
[2019-01-13] MEDS: TACROLIMUS 1 MG CAP PO (09:49)
[2019-01-13] MEDS: CALCITRIOL 0.25 MCG CAP PO (09:49)
[2019-01-13] MEDS: AMIODARONE 200 MG TAB PO ×2 (09:49→21:10)
[2019-01-13] MEDS: FAMOTIDINE 20 MG TAB PO ×2 (09:49→21:10)
[2019-01-13] MEDS: MAGNESIUM OXIDE 400 MG TAB PO ×3 (09:50→21:09)
[2019-01-13] MEDS: FOLIC ACID 1 MG TAB PO (09:50)
[2019-01-13] MEDS: DILTIAZEM (CD) 240 MG CAP PO (09:52)
[2019-01-13] MEDS: DIPHENHYDRAMINE 50 MG CAP PO (18:34)
[2019-01-13] MEDS: DEXTROSE 5% IVPB (19:02)
[2019-01-13] MEDS: AMPHOTERICIN B LIPOSOME IVPB (19:02)
[2019-01-13] MEDS: TACROLIMUS 0.5 MG CAP PO (21:09)
[2019-01-14] MEDS: SOD CHLORIDE 0.9% 1,000 ML IV ×3 (03:07→22:43)
[2019-01-14 05:19] LABS: ADD MAN DIFF? NO
[2019-01-14 05:22] LABS: WHITE BLOOD COUNT 6.5 10^3/ul (4.8-10.8)
[2019-01-14 05:22] LABS: BASOPHIL # 0.1 10^3/ul (0.0-0.1); BASOPHILS % 0.8 % (0.0-2.0); EOSINOPHILS # 0.4 10^3/ul (0.0-0.5); EOSINOPHILS % 6.4 % (0.0-7.0); HEMATOCRIT 29.8 % (42.0-52.0); HEMOGLOBIN 9.2 g/dl (14.0-18.0); LYMPHOCYTES # 0.8 10^3/ul (0.8-2.9); LYMPHOCYTES % 11.6 % (15.0-51.0); MEAN CORPUSCULAR HEMOGLOBIN 27.9 pg (29.0-33.0); MEAN CORPUSCULAR HGB CONC 30.9 g/dl (32.0-37.0); MEAN CORPUSCULAR VOLUME 90.3 fl (82.0-101.0); MEAN PLATELET VOLUME 10.3 fl (7.4-10.4); MONOCYTE # 1.2 10^3/ul (0.3-0.9); MONOCYTES % 17.6 % (0.0-11.0); NEUTROPHIL # 4.1 10^3/ul (1.6-7.5); NEUTROPHILS % 62.5 % (39.0-77.0); PLATELET COUNT 178 10^3/UL (140-415); RED CELL DISTRIBUTION WIDTH 21.6 % (11.5-14.5)
[2019-01-14 06:03] LABS: ALANINE AMINOTRANSFERASE 20 IU/L (13-69); ALBUMIN 2.8 g/dl (3.3-4.9); ALBUMIN/GLOBULIN RATIO 0.87; ALKALINE PHOSPHATASE 93 IU/L (42-121); ANION GAP 9 (5-13); ASPARTATE AMINO TRANSFERASE 36 IU/L (15-46); BILIRUBIN,INDIRECT 0.3 mg/dl (0-1.1); BILIRUBIN,TOTAL 0.3 mg/dl (0.2-1.3); BLOOD UREA NITROGEN 21 mg/dl (7-20); CALCIUM 9.7 mg/dl (8.4-10.2); CARBON DIOXIDE 22 mmol/L (21-31); CHLORIDE 113 mmol/L (97-110); Estimated GFR 44 mL/min (>60); GLUCOSE 125 mg/dl (70-220); MAGNESIUM 1.7 mg/dl (1.7-2.5); POTASSIUM 4.1 mmol/L (3.5-5.1); SODIUM 144 mmol/L (135-144)
[2019-01-14] MEDS: CALCITRIOL 0.25 MCG CAP PO (08:11)
[2019-01-14] MEDS: TACROLIMUS 1 MG CAP PO (08:11)
[2019-01-14] MEDS: DILTIAZEM (CD) 240 MG CAP PO (08:12)
[2019-01-14] MEDS: MULTIVIT/CA CARB/B CMPLX/FA TAB PO (08:12)
[2019-01-14] MEDS: FOLIC ACID 1 MG TAB PO (08:12)
[2019-01-14] MEDS: AMIODARONE 200 MG TAB PO ×2 (08:12→21:03)
[2019-01-14] MEDS: MAGNESIUM OXIDE 400 MG TAB PO ×3 (08:12→21:03)
[2019-01-14] MEDS: FAMOTIDINE 20 MG TAB PO ×2 (08:12→21:03)
[2019-01-14] MEDS: APIXABAN 5 MG TABLET PO ×2 (08:13→21:02)
[2019-01-14] MEDS: TACROLIMUS 0.5 MG CAP PO (21:02)
[2019-01-15 06:04] LABS: ADD MAN DIFF? NO
[2019-01-15 06:18] LABS: WHITE BLOOD COUNT 5.8 10^3/ul (4.8-10.8)
[2019-01-15 06:18] LABS: BASOPHIL # 0.1 10^3/ul (0.0-0.1); EOSINOPHILS # 0.5 10^3/ul (0.0-0.5); EOSINOPHILS % 7.7 % (0.0-7.0); HEMATOCRIT 30.3 % (42.0-52.0); HEMOGLOBIN 9.3 g/dl (14.0-18.0); LYMPHOCYTES # 0.8 10^3/ul (0.8-2.9); LYMPHOCYTES % 14.2 % (15.0-51.0); MEAN CORPUSCULAR HEMOGLOBIN 27.8 pg (29.0-33.0); MEAN CORPUSCULAR HGB CONC 30.7 g/dl (32.0-37.0); MEAN CORPUSCULAR VOLUME 90.7 fl (82.0-101.0); MONOCYTES % 16.6 % (0.0-11.0); NEUTROPHIL # 3.5 10^3/ul (1.6-7.5); NEUTROPHILS % 59.8 % (39.0-77.0); PLATELET COUNT 137 10^3/UL (140-415); RED BLOOD COUNT 3.34 10^6/ul (4.70-6.10); RED CELL DISTRIBUTION WIDTH 21.5 % (11.5-14.5)
[2019-01-15 06:43] LABS: ALANINE AMINOTRANSFERASE 19 IU/L (13-69); ALBUMIN 2.9 g/dl (3.3-4.9); ALBUMIN/GLOBULIN RATIO 0.85; ALKALINE PHOSPHATASE 87 IU/L (42-121); ANION GAP 6 (5-13); ASPARTATE AMINO TRANSFERASE 52 IU/L (15-46); BILIRUBIN,INDIRECT 0.4 mg/dl (0-1.1); BILIRUBIN,TOTAL 0.4 mg/dl (0.2-1.3); BLOOD UREA NITROGEN 23 mg/dl (7-20); CALCIUM 9.7 mg/dl (8.4-10.2); CARBON DIOXIDE 20 mmol/L (21-31); CHLORIDE 113 mmol/L (97-110); CREATININE 1.31 mg/dl (0.61-1.24); Estimated GFR 56 mL/min (>60); GLUCOSE 146 mg/dl (70-220); POTASSIUM 4.9 mmol/L (3.5-5.1); SODIUM 139 mmol/L (135-144); TOTAL PROTEIN 6.3 g/dl (6.1-8.1)
[2019-01-15 06:58] LABS: MAGNESIUM 1.8 mg/dl (1.7-2.5)
[2019-01-15] MEDS: AMIODARONE 200 MG TAB PO ×2 (08:11→21:37)
[2019-01-15] MEDS: MAGNESIUM OXIDE 400 MG TAB PO ×3 (08:11→21:35)
[2019-01-15] MEDS: DILTIAZEM (CD) 240 MG CAP PO (08:12)
[2019-01-15] MEDS: CALCITRIOL 0.25 MCG CAP PO (08:12)
[2019-01-15] MEDS: APIXABAN 5 MG TABLET PO ×2 (08:12→21:36)
[2019-01-15] MEDS: TACROLIMUS 1 MG CAP PO (08:12)
[2019-01-15] MEDS: MULTIVIT/CA CARB/B CMPLX/FA TAB PO (08:12)
[2019-01-15] MEDS: FAMOTIDINE 20 MG TAB PO ×2 (08:12→21:37)
[2019-01-15] MEDS: FOLIC ACID 1 MG TAB PO (08:13)
[2019-01-15] MEDS: SOD CHLORIDE 0.9% 1,000 ML IV ×2 (09:36→23:00)
[2019-01-15] MEDS: TACROLIMUS 0.5 MG CAP PO (21:35)
[2019-01-16] MEDS ORDERED: LIDOCAINE 1% (MPF) 5 ML VIAL SC (01:30)
[2019-01-16] MEDS: METOPROLOL 25 MG TAB PO (02:45)
[2019-01-16 06:10] LABS: ADD MAN DIFF? NO
[2019-01-16 06:16] LABS: WHITE BLOOD COUNT 6.9 10^3/ul (4.8-10.8)
[2019-01-16 06:16] LABS: BASOPHIL # 0.1 10^3/ul (0.0-0.1); BASOPHILS % 0.7 % (0.0-2.0); EOSINOPHILS # 0.5 10^3/ul (0.0-0.5); EOSINOPHILS % 6.6 % (0.0-7.0); HEMATOCRIT 31.7 % (42.0-52.0); HEMOGLOBIN 9.7 g/dl (14.0-18.0); LYMPHOCYTES # 0.9 10^3/ul (0.8-2.9); LYMPHOCYTES % 13.4 % (15.0-51.0); MEAN CORPUSCULAR HEMOGLOBIN 27.3 pg (29.0-33.0); MEAN CORPUSCULAR HGB CONC 30.6 g/dl (32.0-37.0); MEAN CORPUSCULAR VOLUME 89.3 fl (82.0-101.0); MEAN PLATELET VOLUME 10.6 fl (7.4-10.4); MONOCYTE # 1.2 10^3/ul (0.3-0.9); NEUTROPHIL # 4.3 10^3/ul (1.6-7.5); NEUTROPHILS % 61.6 % (39.0-77.0); PLATELET COUNT 189 10^3/UL (140-415); RED BLOOD COUNT 3.55 10^6/ul (4.70-6.10); RED CELL DISTRIBUTION WIDTH 21.4 % (11.5-14.5)
[2019-01-16 06:50] LABS: ALANINE AMINOTRANSFERASE 25 IU/L (13-69); ALBUMIN/GLOBULIN RATIO 0.96; ALKALINE PHOSPHATASE 119 IU/L (42-121); ANION GAP 6 (5-13); ASPARTATE AMINO TRANSFERASE 44 IU/L (15-46); BILIRUBIN,INDIRECT 0.3 mg/dl (0-1.1); BILIRUBIN,TOTAL 0.3 mg/dl (0.2-1.3); BLOOD UREA NITROGEN 27 mg/dl (7-20); CALCIUM 10.3 mg/dl (8.4-10.2); CARBON DIOXIDE 24 mmol/L (21-31); CHLORIDE 110 mmol/L (97-110); CREATININE 1.44 mg/dl (0.61-1.24); Estimated GFR 50 mL/min (>60); GLUCOSE 84 mg/dl (70-220); PHOSPHORUS 2.4 mg/dl (2.5-4.9); POTASSIUM 4.3 mmol/L (3.5-5.1); SODIUM 140 mmol/L (135-144); TOTAL PROTEIN 6.1 g/dl (6.1-8.1)
[2019-01-16] MEDS: FOLIC ACID 1 MG TAB PO (08:52)
[2019-01-16] MEDS: MULTIVIT/CA CARB/B CMPLX/FA TAB PO (08:52)
[2019-01-16] MEDS: CALCITRIOL 0.25 MCG CAP PO (08:52)
[2019-01-16] MEDS: TACROLIMUS 1 MG CAP PO (08:53)
[2019-01-16] MEDS: MAGNESIUM OXIDE 400 MG TAB PO ×2 (08:53→12:16)
[2019-01-16] MEDS: DILTIAZEM (CD) 240 MG CAP PO (08:53)
[2019-01-16] MEDS: FAMOTIDINE 20 MG TAB PO (08:54)
[2019-01-16] MEDS: APIXABAN 5 MG TABLET PO (08:54)
[2019-01-16] MEDS: AMIODARONE 200 MG TAB PO (08:54)
[2019-01-16] MEDS: HYDROmorphONE 1 MG/ML SYG IV (11:21)
[2019-01-17 17:21] LABS: TACROLIMUS 8.2 mcg/L
== END 2019-01-16 16:20 | DRG 474 ==
LOC: TEL 12-23 12:20 → REC 11:48 → 6WM 12-23 13:34 → ICU 16:17
PROVIDERS: Internal Medicine
PROC: 0Y6J0Z2 Detachment at Left Lower Leg, Mid, Open Approach (ICD-10-PCS; principal; 2018-12-22 14:14)
PROC: 0LBP0ZZ Excision of Left Lower Leg Tendon, Open Approach (ICD-10-PCS; 2018-12-22 14:14)
PROC: 0Y6J0Z2 Detachment at Left Lower Leg, Mid, Open Approach (ICD-10-PCS; 2018-12-22 14:14)
DX: T87.44 Infection of amputation stump, left lower extremity (principal); A41.9 Sepsis, unspecified organism; Z94.0 Kidney transplant status; I70.262 Atherosclerosis of native arteries of extremities with gangrene, left leg; E87.2 Acidosis; I47.1 Supraventricular tachycardia; N17.9 Acute kidney failure, unspecified; I12.9 Hypertensive chronic kidney disease with stage 1 through stage 4 chronic kidney disease, or unspecified chronic kidney disease; N18.9 Chronic kidney disease, unspecified; E78.5 Hyperlipidemia, unspecified; D63.1 Anemia in chronic kidney disease; I95.9 Hypotension, unspecified; Z89.432 Acquired absence of left foot; T36.1X5A Adverse effect of cephalosporins and other beta-lactam antibiotics, initial encounter; E83.42 Hypomagnesemia; T87.40 Infection of amputation stump, unspecified extremity; Y83.8 Other surgical procedures as the cause of abnormal reaction of the patient, or of later complication, without mention of misadventure at the time of the procedure; D64.9 Anemia, unspecified; I48.91 Unspecified atrial fibrillation; E87.6 Hypokalemia; I25.5 Ischemic cardiomyopathy
CPT/HCPCS: 71045; 80048; 80053; 80061; 80197; 80202; 81001; 81003; 82306; 82728; 82962; 83036; 83540; 83605; 83735; 83970; 84100; 84145; 84155; 84443; 85025; 85610; 85651; 85730; 86140; 86850; 86900; 86901; 87040-91; 87070; 87075; 87081; 87086; 87102; 87116; 88304; 88305; 88307; 88311; 93005; 93306; 97110; 97116; 97161; 97530; 97542

== ENCOUNTER 2019-01-16 16:11 | Inpatient (IN) | payer OTHER ==
[2019-01-16] MEDS ORDERED: MAGNESIUM HYDROXIDE 30ML CUP PO (17:00)
[2019-01-16] MEDS ORDERED: PENDING SANTYL ORDER FOR WOUND CARE XX (17:00)
[2019-01-16 17:26] LABS: ADD UMIC NO; UR ASCORBIC ACID 20 mg/dL (NEGATIVE); UR BILIRUBIN (Dip) NEGATIVE (NEGATIVE); UR BLOOD (Dip) NEGATIVE (NEGATIVE); UR CLARITY CLEAR (CLEAR); UR COLOR YELLOW (YELLOW); UR GLUCOSE (Dip) NEGATIVE (NEGATIVE); UR KETONES (Dip) NEGATIVE (NEGATIVE); UR LEUKOCYTE ESTERASE (Dip) NEGATIVE Leu/ul (NEGATIVE); UR NITRITE (Dip) NEGATIVE (NEGATIVE); UR TOTAL PROTEIN (Dip) NEGATIVE (NEGATIVE); UR UROBILINOGEN (Dip) NEGATIVE (NEGATIVE)
[2019-01-16] MEDS: MAGNESIUM OXIDE 400 MG TAB PO (20:25)
[2019-01-16] MEDS: TACROLIMUS 0.5 MG CAP PO (20:25)
[2019-01-16] MEDS: FAMOTIDINE 20 MG TAB PO (20:26)
[2019-01-16] MEDS: APIXABAN 5 MG TABLET PO (20:26)
[2019-01-16] MEDS: AMIODARONE 200 MG TAB PO (20:29)
[2019-01-17 07:16] LABS: ADD MAN DIFF? NO
[2019-01-17 07:19] LABS: BASOPHIL # 0.1 10^3/ul (0.0-0.1); EOSINOPHILS # 0.3 10^3/ul (0.0-0.5); EOSINOPHILS % 6.7 % (0.0-7.0); HEMATOCRIT 33.8 % (42.0-52.0); HEMOGLOBIN 10.6 g/dl (14.0-18.0); LYMPHOCYTES # 0.8 10^3/ul (0.8-2.9); LYMPHOCYTES % 15.6 % (15.0-51.0); MEAN CORPUSCULAR HEMOGLOBIN 27.2 pg (29.0-33.0); MEAN CORPUSCULAR HGB CONC 31.4 g/dl (32.0-37.0); MEAN CORPUSCULAR VOLUME 86.9 fl (82.0-101.0); MEAN PLATELET VOLUME 11.1 fl (7.4-10.4); MONOCYTE # 0.8 10^3/ul (0.3-0.9); MONOCYTES % 15.4 % (0.0-11.0); NEUTROPHIL # 3.1 10^3/ul (1.6-7.5); NEUTROPHILS % 60.3 % (39.0-77.0); PLATELET COUNT 186 10^3/UL (140-415); RED BLOOD COUNT 3.89 10^6/ul (4.70-6.10); RED CELL DISTRIBUTION WIDTH 21.3 % (11.5-14.5)
[2019-01-17 07:19] LABS: WHITE BLOOD COUNT 5.1 10^3/ul (4.8-10.8)
[2019-01-17 07:45] LABS: ALANINE AMINOTRANSFERASE 25 IU/L (13-69); ALBUMIN 3.4 g/dl (3.3-4.9); ALBUMIN/GLOBULIN RATIO 0.91; ALKALINE PHOSPHATASE 141 IU/L (42-121); ANION GAP 6 (5-13); ASPARTATE AMINO TRANSFERASE 65 IU/L (15-46); BILIRUBIN,INDIRECT 0.5 mg/dl (0-1.1); BILIRUBIN,TOTAL 0.5 mg/dl (0.2-1.3); BLOOD UREA NITROGEN 26 mg/dl (7-20); CALCIUM 10.5 mg/dl (8.4-10.2); CARBON DIOXIDE 23 mmol/L (21-31); CHLORIDE 111 mmol/L (97-110); CREATININE 1.56 mg/dl (0.61-1.24); Estimated GFR 46 mL/min (>60); GLUCOSE 98 mg/dl (70-220); POTASSIUM 4.3 mmol/L (3.5-5.1); SODIUM 140 mmol/L (135-144); TOTAL PROTEIN 7.1 g/dl (6.1-8.1)
[2019-01-17] MEDS: DILTIAZEM (CD) 240 MG CAP PO (09:31)
[2019-01-17] MEDS: FAMOTIDINE 20 MG TAB PO ×2 (09:32→20:54)
[2019-01-17] MEDS: MULTIVIT/CA CARB/B CMPLX/FA TAB PO (09:32)
[2019-01-17] MEDS: TACROLIMUS 1 MG CAP PO (09:32)
[2019-01-17] MEDS: FOLIC ACID 1 MG TAB PO (09:32)
[2019-01-17] MEDS: APIXABAN 5 MG TABLET PO ×2 (09:32→20:54)
[2019-01-17] MEDS: DOCUSATE SODIUM 100 MG CAP PO (09:32)
[2019-01-17] MEDS: AMIODARONE 200 MG TAB PO ×2 (09:32→20:56)
[2019-01-17] MEDS: CALCITRIOL 0.25 MCG CAP PO (09:33)
[2019-01-17] MEDS: MAGNESIUM OXIDE 400 MG TAB PO ×3 (09:33→20:53)
[2019-01-17 20:01] LABS: MAGNESIUM 2.4 mg/dl (1.7-2.5)
[2019-01-17 20:01] LABS: PHOSPHORUS 2.5 mg/dl (2.5-4.9)
[2019-01-17] MEDS: TACROLIMUS 0.5 MG CAP PO (20:53)
[2019-01-18 07:33] LABS: ANION GAP 5 (5-13); BLOOD UREA NITROGEN 28 mg/dl (7-20); CALCIUM 10.5 mg/dl (8.4-10.2); CARBON DIOXIDE 25 mmol/L (21-31); CHLORIDE 109 mmol/L (97-110); CREATININE 1.65 mg/dl (0.61-1.24); Estimated GFR 43 mL/min (>60); GLUCOSE 101 mg/dl (70-220); POTASSIUM 4.2 mmol/L (3.5-5.1); SODIUM 139 mmol/L (135-144)
[2019-01-18] MEDS: CALCITRIOL 0.25 MCG CAP PO (09:47)
[2019-01-18] MEDS: FOLIC ACID 1 MG TAB PO (09:47)
[2019-01-18] MEDS: APIXABAN 5 MG TABLET PO ×2 (09:48→20:41)
[2019-01-18] MEDS: AMIODARONE 200 MG TAB PO ×2 (09:49→20:41)
[2019-01-18] MEDS: FAMOTIDINE 20 MG TAB PO ×2 (09:49→20:42)
[2019-01-18] MEDS: MULTIVIT/CA CARB/B CMPLX/FA TAB PO (09:49)
[2019-01-18] MEDS: DILTIAZEM (CD) 240 MG CAP PO (09:50)
[2019-01-18] MEDS: DOCUSATE SODIUM 100 MG CAP PO (09:51)
[2019-01-18] MEDS: GABAPENTIN 100 MG CAP PO (20:42)
[2019-01-18] MEDS: TACROLIMUS 1 MG CAP PO (20:42)
[2019-01-19] MEDS: DILTIAZEM (CD) 240 MG CAP PO (08:37)
[2019-01-19] MEDS: MULTIVIT/CA CARB/B CMPLX/FA TAB PO (08:37)
[2019-01-19] MEDS: AMIODARONE 200 MG TAB PO ×2 (08:38→21:16)
[2019-01-19] MEDS: TACROLIMUS 1 MG CAP PO ×2 (08:38→21:17)
[2019-01-19] MEDS: GABAPENTIN 100 MG CAP PO ×2 (08:38→21:16)
[2019-01-19] MEDS: FOLIC ACID 1 MG TAB PO (08:39)
[2019-01-19] MEDS: APIXABAN 5 MG TABLET PO ×2 (08:39→21:16)
[2019-01-19] MEDS: DOCUSATE SODIUM 100 MG CAP PO (08:39)
[2019-01-19] MEDS: FAMOTIDINE 20 MG TAB PO ×2 (08:39→21:16)
[2019-01-19 12:10] LABS: ADD MAN DIFF? NO
[2019-01-19 12:29] LABS: BASOPHIL # 0.1 10^3/ul (0.0-0.1); BASOPHILS % 0.7 % (0.0-2.0); EOSINOPHILS # 0.4 10^3/ul (0.0-0.5); EOSINOPHILS % 6.2 % (0.0-7.0); HEMOGLOBIN 11.1 g/dl (14.0-18.0); LYMPHOCYTES # 0.8 10^3/ul (0.8-2.9); LYMPHOCYTES % 11.1 % (15.0-51.0); MEAN CORPUSCULAR HEMOGLOBIN 27.7 pg (29.0-33.0); MEAN CORPUSCULAR HGB CONC 30.8 g/dl (32.0-37.0); MEAN CORPUSCULAR VOLUME 89.8 fl (82.0-101.0); MEAN PLATELET VOLUME 10.9 fl (7.4-10.4); MONOCYTE # 0.9 10^3/ul (0.3-0.9); MONOCYTES % 12.6 % (0.0-11.0); NEUTROPHIL # 4.7 10^3/ul (1.6-7.5); NEUTROPHILS % 68.5 % (39.0-77.0); PLATELET COUNT 282 10^3/UL (140-415); RED BLOOD COUNT 4.01 10^6/ul (4.70-6.10); RED CELL DISTRIBUTION WIDTH 21.6 % (11.5-14.5)
[2019-01-19 12:29] LABS: WHITE BLOOD COUNT 6.8 10^3/ul (4.8-10.8)
[2019-01-19 12:44] LABS: ALANINE AMINOTRANSFERASE 37 IU/L (13-69); ALBUMIN 3.8 g/dl (3.3-4.9); ALBUMIN/GLOBULIN RATIO 0.95; ALKALINE PHOSPHATASE 175 IU/L (42-121); ANION GAP 12 (5-13); ASPARTATE AMINO TRANSFERASE 82 IU/L (15-46); BILIRUBIN,INDIRECT 0.4 mg/dl (0-1.1); BILIRUBIN,TOTAL 0.4 mg/dl (0.2-1.3); BLOOD UREA NITROGEN 28 mg/dl (7-20); CARBON DIOXIDE 22 mmol/L (21-31); CHLORIDE 105 mmol/L (97-110); CREATININE 1.79 mg/dl (0.61-1.24); Estimated GFR 39 mL/min (>60); GLUCOSE 149 mg/dl (70-220); MAGNESIUM 2.3 mg/dl (1.7-2.5); PHOSPHORUS 2.5 mg/dl (2.5-4.9); POTASSIUM 4.4 mmol/L (3.5-5.1); SODIUM 139 mmol/L (135-144); TOTAL PROTEIN 7.8 g/dl (6.1-8.1)
[2019-01-20] MEDS: APIXABAN 5 MG TABLET PO ×2 (08:09→20:55)
[2019-01-20] MEDS: GABAPENTIN 100 MG CAP PO ×2 (08:09→20:55)
[2019-01-20] MEDS: FAMOTIDINE 20 MG TAB PO ×2 (08:09→20:55)
[2019-01-20] MEDS: FOLIC ACID 1 MG TAB PO (08:09)
[2019-01-20] MEDS: MULTIVIT/CA CARB/B CMPLX/FA TAB PO (08:09)
[2019-01-20] MEDS: DOCUSATE SODIUM 100 MG CAP PO (08:09)
[2019-01-20] MEDS: AMIODARONE 200 MG TAB PO ×2 (08:10→20:56)
[2019-01-20] MEDS: DILTIAZEM (CD) 240 MG CAP PO (08:10)
[2019-01-20 08:24] LABS: ADD MAN DIFF? NO
[2019-01-20 08:43] LABS: BASOPHIL # 0.1 10^3/ul (0.0-0.1); BASOPHILS % 1.2 % (0.0-2.0); EOSINOPHILS # 0.6 10^3/ul (0.0-0.5); EOSINOPHILS % 11.4 % (0.0-7.0); HEMATOCRIT 35.3 % (42.0-52.0); LYMPHOCYTES # 1.2 10^3/ul (0.8-2.9); LYMPHOCYTES % 24.7 % (15.0-51.0); MEAN CORPUSCULAR HGB CONC 31.2 g/dl (32.0-37.0); MEAN CORPUSCULAR VOLUME 89.8 fl (82.0-101.0); MEAN PLATELET VOLUME 10.6 fl (7.4-10.4); MONOCYTE # 0.8 10^3/ul (0.3-0.9); MONOCYTES % 15.1 % (0.0-11.0); NEUTROPHIL # 2.3 10^3/ul (1.6-7.5); NEUTROPHILS % 46.4 % (39.0-77.0); PLATELET COUNT 265 10^3/UL (140-415); RED BLOOD COUNT 3.93 10^6/ul (4.70-6.10); RED CELL DISTRIBUTION WIDTH 21.4 % (11.5-14.5)
[2019-01-20 09:02] LABS: ALANINE AMINOTRANSFERASE 49 IU/L (13-69); ALBUMIN 3.7 g/dl (3.3-4.9); ALBUMIN/GLOBULIN RATIO 1.12; ALKALINE PHOSPHATASE 190 IU/L (42-121); ANION GAP 9 (5-13); ASPARTATE AMINO TRANSFERASE 77 IU/L (15-46); BILIRUBIN,INDIRECT 0.4 mg/dl (0-1.1); BILIRUBIN,TOTAL 0.4 mg/dl (0.2-1.3); BLOOD UREA NITROGEN 29 mg/dl (7-20); CARBON DIOXIDE 24 mmol/L (21-31); CHLORIDE 107 mmol/L (97-110); CREATININE 1.82 mg/dl (0.61-1.24); Estimated GFR 38 mL/min (>60); GLUCOSE 112 mg/dl (70-220); MAGNESIUM 2.2 mg/dl (1.7-2.5); PHOSPHORUS 2.9 mg/dl (2.5-4.9); POTASSIUM 4.5 mmol/L (3.5-5.1); SODIUM 140 mmol/L (135-144)
[2019-01-20] MEDS: TACROLIMUS 0.5 MG CAP PO ×2 (09:36→20:55)
[2019-01-20] MEDS: SOD CHLORIDE 0.9% 1,000 ML IV (14:48)
[2019-01-20] MEDS: CINACALCET 30 MG TAB PO (15:46)
[2019-01-21 06:54] LABS: ADD MAN DIFF? NO
[2019-01-21 06:58] LABS: WHITE BLOOD COUNT 4.7 10^3/ul (4.8-10.8)
[2019-01-21 06:58] LABS: BASOPHILS % 0.8 % (0.0-2.0); EOSINOPHILS # 0.6 10^3/ul (0.0-0.5); EOSINOPHILS % 12.7 % (0.0-7.0); HEMATOCRIT 31.5 % (42.0-52.0); LYMPHOCYTES % 21.4 % (15.0-51.0); MEAN CORPUSCULAR HEMOGLOBIN 28.5 pg (29.0-33.0); MEAN CORPUSCULAR HGB CONC 31.7 g/dl (32.0-37.0); MEAN CORPUSCULAR VOLUME 89.7 fl (82.0-101.0); MEAN PLATELET VOLUME 10.5 fl (7.4-10.4); MONOCYTE # 0.7 10^3/ul (0.3-0.9); MONOCYTES % 15.7 % (0.0-11.0); NEUTROPHIL # 2.3 10^3/ul (1.6-7.5); NEUTROPHILS % 48.1 % (39.0-77.0); PLATELET COUNT 226 10^3/UL (140-415); RED BLOOD COUNT 3.51 10^6/ul (4.70-6.10); RED CELL DISTRIBUTION WIDTH 21.1 % (11.5-14.5)
[2019-01-21 07:27] LABS: ALANINE AMINOTRANSFERASE 50 IU/L (13-69); ALBUMIN 3.4 g/dl (3.3-4.9); ALBUMIN/GLOBULIN RATIO 1.06; ALKALINE PHOSPHATASE 164 IU/L (42-121); ANION GAP 7 (5-13); ASPARTATE AMINO TRANSFERASE 63 IU/L (15-46); BILIRUBIN,INDIRECT 0.4 mg/dl (0-1.1); BILIRUBIN,TOTAL 0.4 mg/dl (0.2-1.3); BLOOD UREA NITROGEN 25 mg/dl (7-20); CALCIUM 10.2 mg/dl (8.4-10.2); CARBON DIOXIDE 26 mmol/L (21-31); CHLORIDE 107 mmol/L (97-110); Estimated GFR 39 mL/min (>60); GLUCOSE 97 mg/dl (70-220); PHOSPHORUS 2.8 mg/dl (2.5-4.9); POTASSIUM 4.1 mmol/L (3.5-5.1); SODIUM 140 mmol/L (135-144); TOTAL PROTEIN 6.6 g/dl (6.1-8.1)
[2019-01-21] MEDS: DOCUSATE SODIUM 100 MG CAP PO (08:51)
[2019-01-21] MEDS: APIXABAN 5 MG TABLET PO ×2 (08:53→20:12)
[2019-01-21] MEDS: MULTIVIT/CA CARB/B CMPLX/FA TAB PO (08:54)
[2019-01-21] MEDS: FAMOTIDINE 20 MG TAB PO ×2 (08:54→20:13)
[2019-01-21] MEDS: CINACALCET 30 MG TAB PO (08:54)
[2019-01-21] MEDS: FOLIC ACID 1 MG TAB PO (08:54)
[2019-01-21] MEDS: TACROLIMUS 0.5 MG CAP PO ×2 (08:54→20:12)
[2019-01-21] MEDS: AMIODARONE 200 MG TAB PO ×2 (08:55→20:12)
[2019-01-21] MEDS: DILTIAZEM (CD) 240 MG CAP PO (08:56)
[2019-01-21] MEDS: SOD CHLORIDE 0.9% 1,000 ML IV (10:50)
[2019-01-21] MEDS: GABAPENTIN 100 MG CAP PO (20:11)
[2019-01-22 06:27] LABS: ADD MAN DIFF? NO
[2019-01-22 06:33] LABS: WHITE BLOOD COUNT 4.4 10^3/ul (4.8-10.8)
[2019-01-22 06:33] LABS: BASOPHIL # 0.1 10^3/ul (0.0-0.1); BASOPHILS % 1.1 % (0.0-2.0); EOSINOPHILS # 0.6 10^3/ul (0.0-0.5); EOSINOPHILS % 13.1 % (0.0-7.0); HEMATOCRIT 31.1 % (42.0-52.0); HEMOGLOBIN 9.8 g/dl (14.0-18.0); LYMPHOCYTES # 0.9 10^3/ul (0.8-2.9); LYMPHOCYTES % 20.9 % (15.0-51.0); MEAN CORPUSCULAR HEMOGLOBIN 28.1 pg (29.0-33.0); MEAN CORPUSCULAR HGB CONC 31.5 g/dl (32.0-37.0); MEAN CORPUSCULAR VOLUME 89.1 fl (82.0-101.0); MONOCYTE # 0.8 10^3/ul (0.3-0.9); MONOCYTES % 17.4 % (0.0-11.0); NEUTROPHILS % 46.4 % (39.0-77.0); PLATELET COUNT 200 10^3/UL (140-415); RED BLOOD COUNT 3.49 10^6/ul (4.70-6.10); RED CELL DISTRIBUTION WIDTH 21.2 % (11.5-14.5)
[2019-01-22 06:54] LABS: ALANINE AMINOTRANSFERASE 42 IU/L (13-69); ALBUMIN 3.2 g/dl (3.3-4.9); ALKALINE PHOSPHATASE 144 IU/L (42-121); ANION GAP 7 (5-13); ASPARTATE AMINO TRANSFERASE 64 IU/L (15-46); BILIRUBIN,INDIRECT 0.5 mg/dl (0-1.1); BILIRUBIN,TOTAL 0.5 mg/dl (0.2-1.3); BLOOD UREA NITROGEN 20 mg/dl (7-20); CALCIUM 9.4 mg/dl (8.4-10.2); CARBON DIOXIDE 24 mmol/L (21-31); CHLORIDE 110 mmol/L (97-110); CREATININE 1.53 mg/dl (0.61-1.24); Estimated GFR 47 mL/min (>60); GLUCOSE 87 mg/dl (70-220); MAGNESIUM 1.8 mg/dl (1.7-2.5); PHOSPHORUS 2.2 mg/dl (2.5-4.9); POTASSIUM 3.9 mmol/L (3.5-5.1); SODIUM 141 mmol/L (135-144); TOTAL PROTEIN 6.4 g/dl (6.1-8.1)
[2019-01-22] MEDS: SOD CHLORIDE 0.9% 1,000 ML IV (07:15)
[2019-01-22] MEDS: DOCUSATE SODIUM 100 MG CAP PO (09:58)
[2019-01-22] MEDS: FOLIC ACID 1 MG TAB PO (09:58)
[2019-01-22] MEDS: FAMOTIDINE 20 MG TAB PO ×2 (09:59→20:32)
[2019-01-22] MEDS: TACROLIMUS 0.5 MG CAP PO ×2 (09:59→20:32)
[2019-01-22] MEDS: APIXABAN 5 MG TABLET PO ×2 (09:59→20:31)
[2019-01-22] MEDS: MULTIVIT/CA CARB/B CMPLX/FA TAB PO (10:00)
[2019-01-22] MEDS: CINACALCET 30 MG TAB PO (10:00)
[2019-01-22] MEDS: DILTIAZEM (CD) 240 MG CAP PO (10:01)
[2019-01-22] MEDS: AMIODARONE 200 MG TAB PO ×2 (10:02→20:32)
[2019-01-22] MEDS: HYDROmorphONE 1 MG/ML SYG IV (17:17)
[2019-01-22] MEDS: COLLAGENASE 5 GM (UD JAR) TOP (17:21)
[2019-01-22] MEDS: GABAPENTIN 100 MG CAP PO (20:32)
[2019-01-23] MEDS: COLLAGENASE 5 GM (UD JAR) TOP (09:58)
[2019-01-23] MEDS: SOD PHOS MONO/DIBAS 250 MG TAB PO ×2 (09:58→20:42)
[2019-01-23] MEDS: DOCUSATE SODIUM 100 MG CAP PO (09:58)
[2019-01-23] MEDS: TACROLIMUS 0.5 MG CAP PO ×2 (09:58→20:42)
[2019-01-23] MEDS: MULTIVIT/CA CARB/B CMPLX/FA TAB PO (09:58)
[2019-01-23] MEDS: CINACALCET 30 MG TAB PO (09:58)
[2019-01-23] MEDS: FAMOTIDINE 20 MG TAB PO ×2 (09:59→20:41)
[2019-01-23] MEDS: FOLIC ACID 1 MG TAB PO (09:59)
[2019-01-23] MEDS: APIXABAN 5 MG TABLET PO ×2 (09:59→20:41)
[2019-01-23] MEDS: AMIODARONE 200 MG TAB PO ×2 (10:00→20:42)
[2019-01-23] MEDS: DILTIAZEM (CD) 240 MG CAP PO (10:01)
[2019-01-23] MEDS: MAGNESIUM OXIDE 400 MG TAB PO ×2 (10:42→20:41)
[2019-01-23] MEDS: SOD CHLORIDE 0.9% 1,000 ML IV (13:05)
[2019-01-23] MEDS: GABAPENTIN 100 MG CAP PO (20:41)
[2019-01-24 07:20] LABS: ADD MAN DIFF? NO
[2019-01-24 07:27] LABS: WHITE BLOOD COUNT 4.4 10^3/ul (4.8-10.8)
[2019-01-24 07:27] LABS: BASOPHILS % 0.7 % (0.0-2.0); EOSINOPHILS # 0.5 10^3/ul (0.0-0.5); HEMATOCRIT 34.5 % (42.0-52.0); HEMOGLOBIN 10.9 g/dl (14.0-18.0); LYMPHOCYTES # 0.9 10^3/ul (0.8-2.9); LYMPHOCYTES % 21.6 % (15.0-51.0); MEAN CORPUSCULAR HEMOGLOBIN 28.2 pg (29.0-33.0); MEAN CORPUSCULAR HGB CONC 31.6 g/dl (32.0-37.0); MEAN CORPUSCULAR VOLUME 89.1 fl (82.0-101.0); MEAN PLATELET VOLUME 10.5 fl (7.4-10.4); MONOCYTE # 0.8 10^3/ul (0.3-0.9); MONOCYTES % 17.2 % (0.0-11.0); NEUTROPHIL # 2.1 10^3/ul (1.6-7.5); NEUTROPHILS % 48.6 % (39.0-77.0); PLATELET COUNT 193 10^3/UL (140-415); RED BLOOD COUNT 3.87 10^6/ul (4.70-6.10); RED CELL DISTRIBUTION WIDTH 20.6 % (11.5-14.5)
[2019-01-24 07:51] LABS: ALANINE AMINOTRANSFERASE 34 IU/L (13-69); ALBUMIN 3.6 g/dl (3.3-4.9); ALBUMIN/GLOBULIN RATIO 1.02; ALKALINE PHOSPHATASE 158 IU/L (42-121); ANION GAP 8 (5-13); ASPARTATE AMINO TRANSFERASE 50 IU/L (15-46); BILIRUBIN,INDIRECT 0.4 mg/dl (0-1.1); BILIRUBIN,TOTAL 0.4 mg/dl (0.2-1.3); BLOOD UREA NITROGEN 17 mg/dl (7-20); CALCIUM 9.5 mg/dl (8.4-10.2); CARBON DIOXIDE 26 mmol/L (21-31); CHLORIDE 107 mmol/L (97-110); CREATININE 1.48 mg/dl (0.61-1.24); Estimated GFR 49 mL/min (>60); GLUCOSE 86 mg/dl (70-220); MAGNESIUM 1.8 mg/dl (1.7-2.5); PHOSPHORUS 2.8 mg/dl (2.5-4.9); POTASSIUM 3.7 mmol/L (3.5-5.1); SODIUM 141 mmol/L (135-144); TOTAL PROTEIN 7.1 g/dl (6.1-8.1)
[2019-01-24] MEDS: FOLIC ACID 1 MG TAB PO (08:08)
[2019-01-24] MEDS: DOCUSATE SODIUM 100 MG CAP PO ×2 (08:08→09:00)
[2019-01-24] MEDS: FAMOTIDINE 20 MG TAB PO ×2 (08:08→20:31)
[2019-01-24] MEDS: MULTIVIT/CA CARB/B CMPLX/FA TAB PO (08:08)
[2019-01-24] MEDS: HYDROmorphONE 1 MG/ML SYG IV ×4 (08:08→19:21)
[2019-01-24] MEDS: SOD PHOS MONO/DIBAS 250 MG TAB PO ×2 (08:09→20:31)
[2019-01-24] MEDS: TACROLIMUS 0.5 MG CAP PO ×2 (08:09→20:31)
[2019-01-24] MEDS: APIXABAN 5 MG TABLET PO ×2 (08:09→20:31)
[2019-01-24] MEDS: MAGNESIUM OXIDE 400 MG TAB PO ×2 (08:09→20:31)
[2019-01-24] MEDS: CINACALCET 30 MG TAB PO ×2 (09:17→09:26)
[2019-01-24] MEDS: AMIODARONE 200 MG TAB PO ×2 (09:26→20:32)
[2019-01-24] MEDS: DILTIAZEM (CD) 240 MG CAP PO (11:27)
[2019-01-24] MEDS: COLLAGENASE 5 GM (UD JAR) TOP (20:31)
[2019-01-24] MEDS: GABAPENTIN 100 MG CAP PO (20:32)
[2019-01-24] MEDS: HYDROCODONE/APAP (5/325) TAB PO (20:52)
[2019-01-25] MEDS: HYDROCODONE/APAP (5/325) TAB PO (09:02)
[2019-01-25] MEDS: FOLIC ACID 1 MG TAB PO (09:05)
[2019-01-25] MEDS: APIXABAN 5 MG TABLET PO ×2 (09:05→20:22)
[2019-01-25] MEDS: SOD PHOS MONO/DIBAS 250 MG TAB PO ×2 (09:05→20:22)
[2019-01-25] MEDS: DOCUSATE SODIUM 100 MG CAP PO (09:05)
[2019-01-25] MEDS: FAMOTIDINE 20 MG TAB PO ×2 (09:06→20:22)
[2019-01-25] MEDS: MULTIVIT/CA CARB/B CMPLX/FA TAB PO (09:06)
[2019-01-25] MEDS: TACROLIMUS 0.5 MG CAP PO ×2 (09:06→20:22)
[2019-01-25] MEDS: MAGNESIUM OXIDE 400 MG TAB PO ×3 (09:06→20:22)
[2019-01-25] MEDS: DILTIAZEM (CD) 240 MG CAP PO (09:07)
[2019-01-25] MEDS: AMIODARONE 200 MG TAB PO ×2 (09:08→20:22)
[2019-01-25] MEDS: COLLAGENASE 5 GM (UD JAR) TOP (09:12)
[2019-01-25] MEDS: GABAPENTIN 100 MG CAP PO (20:22)
[2019-01-26 05:57] LABS: ADD MAN DIFF? NO
[2019-01-26 06:00] LABS: BASOPHILS % 0.6 % (0.0-2.0); EOSINOPHILS # 0.5 10^3/ul (0.0-0.5); EOSINOPHILS % 10.5 % (0.0-7.0); HEMATOCRIT 31.6 % (42.0-52.0); LYMPHOCYTES # 0.9 10^3/ul (0.8-2.9); LYMPHOCYTES % 16.9 % (15.0-51.0); MEAN CORPUSCULAR HEMOGLOBIN 28.6 pg (29.0-33.0); MEAN CORPUSCULAR HGB CONC 31.6 g/dl (32.0-37.0); MEAN CORPUSCULAR VOLUME 90.3 fl (82.0-101.0); MEAN PLATELET VOLUME 9.7 fl (7.4-10.4); MONOCYTE # 0.7 10^3/ul (0.3-0.9); MONOCYTES % 13.9 % (0.0-11.0); NEUTROPHIL # 2.9 10^3/ul (1.6-7.5); NEUTROPHILS % 57.7 % (39.0-77.0); PLATELET COUNT 200 10^3/UL (140-415); RED CELL DISTRIBUTION WIDTH 19.9 % (11.5-14.5)
[2019-01-26 06:46] LABS: ALANINE AMINOTRANSFERASE 36 IU/L (13-69); ALBUMIN 3.6 g/dl (3.3-4.9); ALBUMIN/GLOBULIN RATIO 1.02; ALKALINE PHOSPHATASE 145 IU/L (42-121); ANION GAP 7 (5-13); ASPARTATE AMINO TRANSFERASE 48 IU/L (15-46); BILIRUBIN,INDIRECT 0.3 mg/dl (0-1.1); BILIRUBIN,TOTAL 0.3 mg/dl (0.2-1.3); BLOOD UREA NITROGEN 19 mg/dl (7-20); CALCIUM 9.9 mg/dl (8.4-10.2); CARBON DIOXIDE 28 mmol/L (21-31); CHLORIDE 106 mmol/L (97-110); CREATININE 1.57 mg/dl (0.61-1.24); Estimated GFR 45 mL/min (>60); GLUCOSE 88 mg/dl (70-220); MAGNESIUM 2.2 mg/dl (1.7-2.5); POTASSIUM 3.9 mmol/L (3.5-5.1); SODIUM 141 mmol/L (135-144); TOTAL PROTEIN 7.1 g/dl (6.1-8.1)
[2019-01-26] MEDS: FOLIC ACID 1 MG TAB PO (08:30)
[2019-01-26] MEDS: MULTIVIT/CA CARB/B CMPLX/FA TAB PO (08:30)
[2019-01-26] MEDS: SOD PHOS MONO/DIBAS 250 MG TAB PO ×2 (08:30→21:13)
[2019-01-26] MEDS: AMIODARONE 200 MG TAB PO ×2 (08:30→21:14)
[2019-01-26] MEDS: APIXABAN 5 MG TABLET PO ×2 (08:30→21:14)
[2019-01-26] MEDS: MAGNESIUM OXIDE 400 MG TAB PO ×2 (08:30→21:13)
[2019-01-26] MEDS: CINACALCET 30 MG TAB PO (08:31)
[2019-01-26] MEDS: TACROLIMUS 0.5 MG CAP PO ×2 (08:31→21:13)
[2019-01-26] MEDS: FAMOTIDINE 20 MG TAB PO ×2 (08:31→21:13)
[2019-01-26] MEDS: DILTIAZEM (CD) 240 MG CAP PO (08:31)
[2019-01-26] MEDS: DOCUSATE SODIUM 100 MG CAP PO (11:30)
[2019-01-26] MEDS: COLLAGENASE 5 GM (UD JAR) TOP (11:33)
[2019-01-26] MEDS: GABAPENTIN 100 MG CAP PO (21:13)
[2019-01-27] MEDS: DOCUSATE SODIUM 100 MG CAP PO (10:26)
[2019-01-27] MEDS: FAMOTIDINE 20 MG TAB PO ×2 (10:27→21:21)
[2019-01-27] MEDS: MULTIVIT/CA CARB/B CMPLX/FA TAB PO (10:27)
[2019-01-27] MEDS: APIXABAN 5 MG TABLET PO ×2 (10:27→21:21)
[2019-01-27] MEDS: MAGNESIUM OXIDE 400 MG TAB PO ×2 (10:28→21:21)
[2019-01-27] MEDS: FOLIC ACID 1 MG TAB PO (10:28)
[2019-01-27] MEDS: SOD PHOS MONO/DIBAS 250 MG TAB PO ×2 (10:28→21:21)
[2019-01-27] MEDS: TACROLIMUS 0.5 MG CAP PO ×2 (10:28→21:21)
[2019-01-27] MEDS: COLLAGENASE 5 GM (UD JAR) TOP (10:29)
[2019-01-27] MEDS: DILTIAZEM (CD) 240 MG CAP PO (10:37)
[2019-01-27] MEDS: CINACALCET 30 MG TAB PO (10:37)
[2019-01-27] MEDS: AMIODARONE 200 MG TAB PO ×2 (10:37→21:21)
[2019-01-27] MEDS: HYDROCODONE/APAP (5/325) TAB PO (10:41)
[2019-01-27] MEDS: GABAPENTIN 100 MG CAP PO (21:21)
[2019-01-28 07:18] LABS: ADD MAN DIFF? NO
[2019-01-28 07:26] LABS: WHITE BLOOD COUNT 3.9 10^3/ul (4.8-10.8)
[2019-01-28 07:26] LABS: EOSINOPHILS # 0.5 10^3/ul (0.0-0.5); EOSINOPHILS % 12.3 % (0.0-7.0); HEMATOCRIT 35.2 % (42.0-52.0); LYMPHOCYTES % 24.4 % (15.0-51.0); MEAN CORPUSCULAR HEMOGLOBIN 27.7 pg (29.0-33.0); MEAN CORPUSCULAR HGB CONC 31.3 g/dl (32.0-37.0); MEAN CORPUSCULAR VOLUME 88.7 fl (82.0-101.0); MEAN PLATELET VOLUME 10.7 fl (7.4-10.4); MONOCYTE # 0.8 10^3/ul (0.3-0.9); MONOCYTES % 19.2 % (0.0-11.0); NEUTROPHIL # 1.7 10^3/ul (1.6-7.5); NEUTROPHILS % 42.8 % (39.0-77.0); PLATELET COUNT 204 10^3/UL (140-415); RED BLOOD COUNT 3.97 10^6/ul (4.70-6.10); RED CELL DISTRIBUTION WIDTH 19.4 % (11.5-14.5)
[2019-01-28 07:50] LABS: ALANINE AMINOTRANSFERASE 47 IU/L (13-69); ALBUMIN 3.6 g/dl (3.3-4.9); ALBUMIN/GLOBULIN RATIO 0.97; ALKALINE PHOSPHATASE 142 IU/L (42-121); ANION GAP 4 (5-13); ASPARTATE AMINO TRANSFERASE 61 IU/L (15-46); BILIRUBIN,INDIRECT 0.4 mg/dl (0-1.1); BILIRUBIN,TOTAL 0.4 mg/dl (0.2-1.3); BLOOD UREA NITROGEN 17 mg/dl (7-20); CALCIUM 9.7 mg/dl (8.4-10.2); CARBON DIOXIDE 28 mmol/L (21-31); CHLORIDE 108 mmol/L (97-110); CREATININE 1.65 mg/dl (0.61-1.24); Estimated GFR 43 mL/min (>60); GLUCOSE 84 mg/dl (70-220); MAGNESIUM 2.1 mg/dl (1.7-2.5); PHOSPHORUS 3.1 mg/dl (2.5-4.9); POTASSIUM 3.8 mmol/L (3.5-5.1); SODIUM 140 mmol/L (135-144); TOTAL PROTEIN 7.3 g/dl (6.1-8.1)
[2019-01-28] MEDS: MULTIVIT/CA CARB/B CMPLX/FA TAB PO (08:42)
[2019-01-28] MEDS: FAMOTIDINE 20 MG TAB PO ×2 (08:43→21:24)
[2019-01-28] MEDS: FOLIC ACID 1 MG TAB PO (08:43)
[2019-01-28] MEDS: MAGNESIUM OXIDE 400 MG TAB PO ×2 (08:43→21:24)
[2019-01-28] MEDS: CINACALCET 30 MG TAB PO (08:43)
[2019-01-28] MEDS: DOCUSATE SODIUM 100 MG CAP PO (08:43)
[2019-01-28] MEDS: APIXABAN 5 MG TABLET PO ×2 (08:44→21:24)
[2019-01-28] MEDS: DILTIAZEM (CD) 240 MG CAP PO (08:45)
[2019-01-28] MEDS: HYDROCODONE/APAP (5/325) TAB PO ×2 (08:46→21:25)
[2019-01-28] MEDS: SOD PHOS MONO/DIBAS 250 MG TAB PO ×2 (09:53→21:23)
[2019-01-28] MEDS: COLLAGENASE 5 GM (UD JAR) TOP ×2 (09:56→10:05)
[2019-01-28] MEDS: AMIODARONE 200 MG TAB PO ×2 (09:57→21:24)
[2019-01-28] MEDS: TACROLIMUS 0.5 MG CAP PO ×2 (09:58→21:24)
[2019-01-28] MEDS: HYDROmorphONE 1 MG/ML SYG IV ×4 (10:06→17:44)
[2019-01-28] MEDS: METOPROLOL (XL) 25 MG TAB PO (13:23)
[2019-01-28] MEDS: GABAPENTIN 100 MG CAP PO (21:24)
[2019-01-29 08:07] LABS: ALANINE AMINOTRANSFERASE 47 IU/L (13-69); ALBUMIN 3.6 g/dl (3.3-4.9); ALBUMIN/GLOBULIN RATIO 1.05; ALKALINE PHOSPHATASE 132 IU/L (42-121); ANION GAP 6 (5-13); ASPARTATE AMINO TRANSFERASE 58 IU/L (15-46); BILIRUBIN,INDIRECT 0.4 mg/dl (0-1.1); BILIRUBIN,TOTAL 0.4 mg/dl (0.2-1.3); BLOOD UREA NITROGEN 18 mg/dl (7-20); CALCIUM 9.8 mg/dl (8.4-10.2); CARBON DIOXIDE 26 mmol/L (21-31); CHLORIDE 108 mmol/L (97-110); CREATININE 1.62 mg/dl (0.61-1.24); Estimated GFR 44 mL/min (>60); GLUCOSE 85 mg/dl (70-220); POTASSIUM 4.1 mmol/L (3.5-5.1); SODIUM 140 mmol/L (135-144)
[2019-01-29] MEDS: CINACALCET 30 MG TAB PO (09:31)
[2019-01-29] MEDS: MULTIVIT/CA CARB/B CMPLX/FA TAB PO (09:33)
[2019-01-29] MEDS: AMIODARONE 200 MG TAB PO ×2 (09:33→21:10)
[2019-01-29] MEDS: APIXABAN 5 MG TABLET PO ×2 (09:34→21:09)
[2019-01-29] MEDS: METOPROLOL (XL) 25 MG TAB PO (09:35)
[2019-01-29] MEDS: TACROLIMUS 0.5 MG CAP PO ×2 (09:35→21:09)
[2019-01-29] MEDS: DILTIAZEM (CD) 240 MG CAP PO (09:36)
[2019-01-29] MEDS: SOD PHOS MONO/DIBAS 250 MG TAB PO ×2 (09:36→21:09)
[2019-01-29] MEDS: DOCUSATE SODIUM 100 MG CAP PO (09:37)
[2019-01-29] MEDS: FOLIC ACID 1 MG TAB PO (09:37)
[2019-01-29] MEDS: MAGNESIUM OXIDE 400 MG TAB PO ×2 (09:37→21:09)
[2019-01-29] MEDS: FAMOTIDINE 20 MG TAB PO ×2 (09:37→21:09)
[2019-01-29] MEDS: COLLAGENASE 5 GM (UD JAR) TOP (09:38)
[2019-01-29] MEDS: ACETAMINOPHEN 325 MG TAB PO (09:38)
[2019-01-29 09:46] LABS: MAGNESIUM 2.1 mg/dl (1.7-2.5)
[2019-01-29 09:46] LABS: PHOSPHORUS 3.2 mg/dl (2.5-4.9)
[2019-01-29] MEDS: GABAPENTIN 100 MG CAP PO (21:09)
[2019-01-30] MEDS: DOCUSATE SODIUM 100 MG CAP PO (09:00)
[2019-01-30] MEDS: METOPROLOL (XL) 25 MG TAB PO (09:00)
[2019-01-30] MEDS: DILTIAZEM (CD) 240 MG CAP PO (09:00)
[2019-01-30] MEDS: SOD PHOS MONO/DIBAS 250 MG TAB PO (09:45)
[2019-01-30] MEDS: COLLAGENASE 5 GM (UD JAR) TOP (09:45)
[2019-01-30] MEDS: TACROLIMUS 0.5 MG CAP PO (09:45)
[2019-01-30] MEDS: APIXABAN 5 MG TABLET PO (09:46)
[2019-01-30] MEDS: AMIODARONE 200 MG TAB PO (09:46)
[2019-01-30] MEDS: CINACALCET 30 MG TAB PO (09:47)
[2019-01-30] MEDS: MAGNESIUM OXIDE 400 MG TAB PO (09:47)
[2019-01-30] MEDS: FAMOTIDINE 20 MG TAB PO (09:47)
[2019-01-30] MEDS: FOLIC ACID 1 MG TAB PO (09:47)
[2019-01-30] MEDS: MULTIVIT/CA CARB/B CMPLX/FA TAB PO (09:48)
[2019-01-30] MEDS: HYDROCODONE/APAP (5/325) TAB PO (09:48)
[2019-01-30 18:26] LABS: TACROLIMUS 3.4 mcg/L
== END 2019-01-30 13:45 | disposition home or self-care (01) | DRG 559 ==
LOC: VRC 01-26 15:43
DX: Z47.81 Encounter for orthopedic aftercare following surgical amputation (principal); N18.6 End stage renal disease; I12.0 Hypertensive chronic kidney disease with stage 5 chronic kidney disease or end stage renal disease; Z94.0 Kidney transplant status; I48.91 Unspecified atrial fibrillation; I73.9 Peripheral vascular disease, unspecified; E78.5 Hyperlipidemia, unspecified; E05.90 Thyrotoxicosis, unspecified without thyrotoxic crisis or storm; E83.42 Hypomagnesemia; Z89.512 Acquired absence of left leg below knee; E83.39 Other disorders of phosphorus metabolism; D63.8 Anemia in other chronic diseases classified elsewhere; E21.3 Hyperparathyroidism, unspecified
CPT/HCPCS: 76775; 80048; 80053; 80197; 81003; 83735; 84100; 85025; 87081; 87086; 97110; 97116; 97150; 97163; 97167; 97530; 97535; 97542